=== PATIENT | male | born 1945 | race Caucasian/White ===

== ENCOUNTER → 2018-04-18 12:25 | Outpatient (CLI) | payer MEDICARE, OTHER, SELFPAY ==
[2018-04-12 10:12] VITALS: BMI 29.5
[2018-04-18 13:36] LABS: Absolute Lymphocyte Count 1.51 X10^3/ul (0.83-4.51); Absolute Neutrophil Count 4.3 X10^3/uL (2.0-7.7); Basophil# 0.02 X10^3/uL; Basophil% 0.3 % (0-1); Eosinophil# 0.18 X10^3/uL; Eosinophils% 2.7 % (0-5); Hematocrit 45.8 % (40-54); Hemoglobin 14.9 g/dl (13.0-16.5); Lymphocyte # 1.51 X10^3/ul (4.0); Lymphocyte % 22.8 % (19-41); Mean Corp Hgb Conc 32.5 g/gl (32-36); Mean Corpuscular Volume 95.4 fL (80-94); Mean Platelet Vol. 10.1 fl (6.2-12.0); Monocyte# 0.59 X10^3/uL; Monocyte% 8.9 % (0-10); Neutrophil # 4.32 X10^3/uL (2.7-7.7); Neutrophil % 65.1 % (47-70); Platelet Count 216 K/mm3 (150-450); RBC Distribution Width CV 12.8 % (11.6-14.6); RBC Distribution Width SD 43.2 fl (35.1-43.9); White Blood Count 6.6 K/mm3 (4.4-11.0)
[2018-04-18 13:38] LABS: POSITIVE COUNT NO; POSITIVE DIFFERENTIAL NO; POSITIVE MORPHOLOGY NO
[2018-04-18 14:10] LABS: Anion Gap 7 (5-15); BUN 28 mg/dL (7-18); BUN/Creat Ratio 17.2 RATIO (10-20); Calcium,Total 8.6 mg/dL (8.5-10.1); Chloride 111 mmol/L (98-107); Creatinine, Serum 1.63 mg/dL (0.70-1.30); EST Glomerular Filtration Rate 44 mL/min (>60); Est Glom Filt Rate - Afr Amer 54 mL/min (>60); Glucose 93 mg/dL (74-106); Magnesium 2.4 mg/dL (1.6-2.6); Sodium Level 146 mmol/L (136-145); Thyroid Stim Hormone (TSH) 1.41 uIU/mL (0.358-3.74)
== END ==
PROVIDERS: Family Provider Family Medicine; PCP Family Medicine; Referring Provider Internal Medicine Cardiovascular Disease; Visit Provider Internal Medicine Cardiovascular Disease
DX: I47.1 Supraventricular tachycardia (principal); I10 Essential (primary) hypertension
CPT/HCPCS: 36415; 80048; 83735; 84443; 85025

== ENCOUNTER → 2018-05-02 05:39 | Outpatient (CLI) | payer MEDICARE, OTHER, SELFPAY ==
[2018-04-12 10:12] VITALS: BP 109/71; PULSE 83; RESP 18; TEMP 36.6; O2SAT 98; BMI 29.5
--- NOTE | 2018-04-12 10:59 | HP.PCM_ITS ---
Problem List (1) Screening for intestinal cancer Status: Acute History of Present Illness Date of Admission: 04/12/18 The patient is a 73 year old M screening colonoscopy. His last colonoscopy was 10 years ago. He denies bright red blood per rectum or melena. No abdominal pain. No change in bowel habits. No unexplained weight loss. He has otherwise enjoys good health. There is no family history of colon polyps or colon cancer. Past Medical History Allergies No Known Allergies Allergy (Verified 04/09/18 15:02) Home Medications: Ambulatory Orders Medication Instructions Recorded Indapamide 1.25 mg PO DAILY 04/09/18 Lisinopril [Zestril] 20 mg PO DAILY 04/09/18 Lovastatin [Mevacor] 40 mg PO DAILY 04/09/18 Smoking Status: Never smoker Tobacco Use: Non-smoker Review of Systems Constitutional: Denies: Anorexia HEENT: Denies: Difficulty Swallowing Cardiovascular: Denies: Chest Pain Respiratory: Denies: Shortness of Breath Gastrointestinal: Denies: Abdominal Pain, Hematochezia, Melena Psychiatric: Denies: Anxiety Endocrine: Denies: Change in Body Habitus VTE Information - Inpt Only VTE Present on Admission: No Patient Problems: Active and Suspected Problems Screening for intestinal cancer (Acute) - Physical Exam General: Alert, Oriented x3, Cooperative, No apparent distress HEENT: Atraumatic Oral: Moist Mucosa Neck: Supple Lungs: Clear to auscultation, Normal air movement Cardiovascular: Regular rate, Regular Rhythm Abdomen: Bowel Sounds Present, Soft, Non Tender Extremities: No Calf Tenderness Psych/Mental Status: Normal Affect Vital Signs Temp Pulse Resp BP Pulse Ox 98 F 83 18 109/71 98 04/12/18 10:12 04/12/18 10:12 04/12/18 10:12 04/12/18 10:12 04/12/18 10:12 Oxygen Delivery Method Room Air Weight: 211 lb 10.3 oz Body Mass Index (BMI) 29.5 Assessment/Plan All Active Problems Screening for intestinal cancer (Acute) I have recommended the patient is screening colonoscopy with possible biopsy or polypectomy as indicated. He is aware of the technique, benefits, risks and alternatives. He has had an opportunity to ask and have questions answered. We will proceed as noted. He presents via our open access program today. Kartik Sams M.D., F.A.C.S. Addendum As the patient was connected to the monitor it became apparent that he had a run of a supraventricular tachycardia. He was asymptomatic. Blood pressure was stable. On further discussion with the patient it is apparent that his referral was based upon a [place] guard that was positive. With that in mind I would prefer to combine a upper and lower endoscopy The patient and are requesting consultation by special agent group insurance Dr. Abdiel Ferrari. We will establish an outpatient appointment for him. We will obtain an EKG today. We will then need to see the patient preoperatively in the office to arrange for a combined upper and lower endoscopy under monitored anesthesia care. Kartik Sams M.D., F.A.C.S. I have spoken with Dr. Abdiel Ferrari who is willing to see the patient next week for us and provide appropriate evaluation
[2018-04-12 11:20] VITALS: BP 124/83; O2SAT 96
--- NOTE | 2018-04-12 15:56 | EKG12_ITS ---
Test Reason : PREOP Blood Pressure : / mmHG Vent. Rate : 066 BPM Atrial Rate : 066 BPM P-R Int : 154 ms QRS Dur : 140 ms QT Int : 424 ms P-R-T Axes : 042 -12 -08 degrees QTc Int : 444 ms Normal sinus rhythm with sinus arrhythmia Right bundle branch block Abnormal ECG Confirmed by TERE KHAN, ONEAL ([id number]), manager editorial DAMIAN MUSE ([id number]) on 04/17/2018 3:55:09 PM Referred By: Kartik Sams Confirmed By:ONEAL CARRANZA MD
--- OUTSIDE RECORDS SUMMARY | 2018-06-07 11:21 | XMS RPT_ITS ---
:1945 Author Organization OHIP Care Team Providers Name Role Phone Ayush Ochoa Admitting Unavailable Ayush Ochoa Attending Unavailable Osman Mishra Primary Care Unavailable Abdiel Ferrari Attending Unavailable Jeovanny Ferraril Referring Unavailable OSMAN MISHRA Primary Care Unavailable Nurse, Surgery Attending Unavailable OSMAN MISHRA Referring Unavailable Abdiel Ferrari Attending Unavailable OSMAN MISHRA Referring Unavailable Abdiel Ferrari Attending Unavailable Abdiel Ferrari Referring Unavailable OSMAN MISHRA Primary Care Unavailable Juan C Carranza Attending Unavailable Kartik Sams Referring Unavailable PROBLEMS PROBLEMS DATE TYPE CONDITION / CODE ATTENDING STATUS SOURCE 04/18/2018 Unknown G45.9 - Transient [place], [place] Active [place] cerebral ischemic Community attack, unspecified / Hospital G45.9(ICD-10) Repository 04/18/2018 Unknown I47.1 - [place], [place] Active [facility] Supraventricular Community tachycardia / Hospital I47.1(ICD-10) Repository 04/18/2018 Unknown I10 - Essential Vonda, Abdiel Active [place] (primary) hypertension Community / I10(ICD-10) Hospital Repository 04/18/2018 Unknown E78.5 - Vonda, Abdiel Active [facility] Hyperlipidemia, Community unspecified / Hospital E78.5(ICD-10) Repository 04/23/2018 Unknown I45.10 - Unspecified [place], Active [facility] right bundle-branch [facility] block / I45.10(ICD-10) Hospital Repository 04/23/2018 Unknown R94.31 - Abnormal [place], Active [place] electrocardiogram [facility] [ECG] [EKG] / Hospital R94.31(ICD-10) Repository PROCEDURES PROCEDURES No Procedure Records FoundRESULTS RESULTS CBC W/DIFF, AUTOMATED Collected: 04/18/2018 Status: F Source: [facility] 12:30 PM [facility] HOSPITAL REPOSITORY TYPE CODE TESTS RESULT OUT OF RANGE REFERENCE UNITS LAB L100.1000 4.4-11.0 K/mm3 Normal WBC 6.6 LAB L100.1200 4.6-6.2 M/mm3 Normal RBC 4.80 LAB L100.1300 13.0-16.5 g/dl Normal HGB 14.9 LAB L100.1400 40-54 % Normal HCT 45.8 LAB L100.1500 80-94 fL High MCV 95.4 LAB L100.1600 27.0-32.0 pg Normal MCH 31.0 LAB L100.1700 32-36 g/gl Normal MCHC 32.5 LAB L100.1810 11.6-14.6 % Normal RDW CV 12.8 LAB L100.1820 35.1-43.9 fl Normal RDW SD 43.2 LAB L100.1900 150-450 K/mm3 Normal PLT 216 LAB L100.2000 6.2-12.0 fl Normal MPV 10.1 LAB L100.2100 47-70 % Normal NEUT% 65.1 LAB L100.2200 19-41 % Normal LY% 22.8 LAB L100.2300 0-10 % Normal MONO% 8.9 LAB L100.2400 0-5 % Normal EO% 2.7 LAB L100.2500 0-1 % Normal BASO% 0.3 LAB L100.2550 0.0-0.9 % Normal IM GRAN % 0.200 Result Comment: IG% - Immature Granulocytes (promyelocytes, myelocytes and metamyelocytes) > 1% indicates that a LEFT SHIFT is Present. LAB L100.2620 2.0-7.7 X10 3/uL Normal Absolute Neut 4.3 LAB L100.2720 0.83-4.51 X10 3/ul Normal Absolute Lymph 1.51 Performed By: #### L100.0100 #### [facility] [address] [place], [place], [id number] BASIC METABOLIC Collected: 04/18/2018 Status: F Source: [place] PROFILE (BMP) 12:30 PM [facility] [place] TYPE CODE TESTS RESULT OUT OF RANGE REFERENCE UNITS LAB L501.0100 74-106 mg/dL Normal GLU 93 Result Comment: Please note revised GLUCOSE reference range effective 2017. LAB L501.1000 7-18 mg/dL High BUN 28 LAB L501.1100 0.70-1.30 mg/dL High CREAT,SERUM 1.63 Result Comment: The validity of the calculated GFR AND GFRAA in patients over 70 years has not been determined. Clinical correlation is essential. LAB L501.1110 >60 mL/min Low EST GFR 44 Result Comment: Non- GFR Calc LAB L501.1115 >60 mL/min Low EST GFR - AA 54 Result Comment: GFR Calc LAB L501.1300 10-20 RATIO Normal BUN/CRE 17.2 LAB L501.2200 8.5-10.1 mg/dL CA Normal 8.6 LAB L501.5300 136-145 mmol/L High NA 146 LAB L501.5600 3.5-5.1 mmol/L K Normal 4.0 LAB L501.5900 98-107 mmol/L High CL 111 LAB L501.6100 21.0-32.0 mmol/L Normal CO2 28.0 LAB L501.6200 5-15 Normal GAP 7 Performed By: #### L500.2500, L501.5200, L501.9520 #### [facility] [address] [place], [place], [address] MAGNESIUM Collected: 04/18/2018 Status: F Source: [place] 12:30 PM [facility] [place] TYPE CODE TESTS RESULT OUT OF RANGE REFERENCE UNITS LAB L501.5200 1.6-2.6 mg/dL Normal MG 2.4 Performed By: #### L500.2500, L501.5200, L501.9520 #### [facility] [address] [place], [address] THYROID STIM HORMONE Collected: 04/18/2018 Status: F Source: [place] (TSH) 12:30 PM [facility] [place] TYPE CODE TESTS RESULT OUT OF RANGE REFERENCE UNITS LAB L501.9520 0.358-3.74 uIU/mL Normal TSH 1.41 Performed By: #### L500.2500, L501.5200, L501.9520 #### [facility] [address] [place], [address] CARDIOLOGY VISIT Observed: 04/18/2018 Status: F Source: [place] REPORT 11:51 AM [facility] [place] [facility] [address] [place] [address] OFFICE VISIT Date of Service: 04/18/18 MR#: [id number] Acct: [id number] Name: LEONEL BLISS Rep #: [id number] : 1945 Provider: Abdiel Ferrari MD Age/Sex: 73/M Location: [facility] Status: Signed HPI [facility] Chief Complaint: Initial visits. Details: LEONEL BLISS, is a 73 M who presents to the office today for an initial visit. He is a pleasant gentleman with no previous history other than hypertension who was scheduled for a screening colonoscopy. He had had no abdominal pain or change in bowel habits or palpitations. He has had no chest pain nourished paroxysmal nocturnal dyspnea. He had had mild pedal edema and was placed on indapamide about a year ago. Shortly before the colonoscopy he was noted to go into a narrow complex tachycardia with a rate of approximately 150 bpm which started abruptly with a premature atrial complex and ended abruptly. Sinus rhythm recurred. I was contacted by the surgeon to see whether he could be evaluated pre-operatively. He has had no other symptomatology and no palpitations. Previous echocardiogram which was performed in 2017 demonstrated an ejection fraction of 65%, mild concentric hypertrophy, stage I diastolic dysfunction. He also had an electrocardiogram which demonstrated normal sinus rhythm with a rate of 66 bpm and a right bundle branch block. His physical exam today is unremarkable. Intake Vital Signs04/18/18 Weight: 216 lb 04/18/18 Blood Pressure 118/68 04/18/18 Respiratory Rate 16 04/18/18 Pulse Rate 60 04/18/18 Pulse Ox 95 Intake Visit Reasons: Cebul referred, [place] Allergies No Known Allergies Allergy (Verified 04/18/18 11:00) Medications Lovastatin [Mevacor] 40 mg PO DAILY 04/09/18 [History Confirmed 04/18/18] lisinopril 10 mg tablet 10 mg PO DAILY #90 tab 04/18/18 [Rx Confirmed 04/18/18] metoprolol succinate ER 50 mg tablet,extended release 24 hr 50 mg PO DAILY #90 tab 04/18/18 [Rx Confirmed 04/18/18] [facility] Medical History Essential (primary) hypertension (Chronic) Hyperlipidemia (Chronic) Right bundle branch block (Chronic) TIA (transient ischemic attack) (Chronic) Paroxysmal supraventricular tachycardia (Acute) Surgical History H/O arthroscopy of right knee (Resolved) H/O inguinal hernia repair (Resolved) H/O umbilical hernia repair (Resolved) Family History Mother Hypertension Father Hypertension Sister Hypertension Brother Hypertension Myocardial infarction Social History Smoking Status: Never smoker alcohol intake: current alcohol intake frequency: other Alcohol type: beer ROS Const Const: Negative for fatigue, weakness, difficulty sleeping, frequent falls, excessive sweating or headache(s) Eyes Eyes: Negative for loss of peripheral vision, transient loss of vision, blurry vision, tunnel vision or double vision ENT ENT: Negative for headache(s), dizziness, Nosebleed/epistaxis or balance problems Cardio Chest Pain: No Palpitations: No Edema: None Muscle aches with walking: None Resp Respiratory: Negative for SOB with activity, SOB at rest, SOB orthopnea\SOB lying down, paroxysmal nocturnal dyspnea or Cough GI GI: Negative nausea, heartburn, black,tarry stools or vomiting : Negative for hematuria Musc Musc: Negative for balance problems, muscle aches/ myalgia, muscle weakness or joint pain Skin Skin: Negative non-healing lesions, unusual bruising or rash Neuro Neuro: Negative for weakness, frequent falls, headache(s), blurry vision, double vision, dizziness, lightheadedness, orthostatic symptoms, near syncope, syncope or lack of coordination Edgar Hematologic/Lymphatic: Negative for easy bruising or easy bleeding Endo Endo: Negative for fatigue, excessive sweating or increased thirst/drinking Psych Psych: Negative for anxiety or depression Allergy Allergy/Immunology: Negative for hives, Negative for rash Cardiology Exam Const Appearance: cooperative, healthy appearing, well developed, well groomed and no acute distress Nutritional Appearance: well nourished and average body habitus Orientation: alert, awake and oriented x3 Head Head: normal to inspection, normocephalic and atraumatic Ears: hearing grossly normal bilaterally and external ears normal Nose: external nose normal, nasal mucous membranes and turbinates normal, nares normal, septum normal, no nasal discharge Face and Sinus: face symmetric Mouth: oral mucosae normal, tongue normal, oropharynx normal and moist mucous membranes Teeth and gingiva: dentition normal Throat: posterior oropharynx normal, tonsils normal and uvula midline Eyes General: appearance normal, both eyes and all related structures Eyelids: eyelids normal Conjunctivae: conjunctivae normal Pupils: PERRL, normal by confrontation and accommodation normal EOM: EOM intact bilaterally Neck Neck: normal visual inspection, trachea midline and no JVD JVD: +5 Carotids: normal carotid upstroke and bounding pulses Chest Chest inspection: normal inspection of the chest, symmetric chest movement and normal respiratory effort Auscultation: Bilateral: Clear to Auscultation Cardio Palpation: normal PMI Rate: regular rate Rhythm: regular rhythm Heart sounds: S1 normal, S2 normal and normal, physiologic split S2; negative rub, gallop or murmur GI GI: normal to inspection, soft, no hepatosplenomegaly and bowel sounds present Neuro General: alert, awake, oriented x3, no focal sensory deficit, gait normal and moves all extremities Skin Skin: no rashes or lesions noted Extremities Pulses: Normal: Right Femoral Pulse, Left Femoral Pulse, Right Dorsalis Pedis Pulse, Left Dorsalis Pedis Pulse, Right Posterior Tibial Pulse, Left Posterior Tibial Pulse, Right Radial Pulse, Left Radial Pulse Lower Extremity Edema: None: Bilateral Musculoskel Musculoskeletal: No joint tenderness Psych Psychological: normal affect Assessment AND Plan 1. Paroxysmal supraventricular tachycardia I47.1 Plan He does have a history of documented paroxysmal atrial tachycardia. My recommendation will be to repeat his echocardiogram, obtain blood work including magnesium and potassium as well as thyroid profile. I would recommend that we place him on a beta-maykel with Toprol-XL 50 mg a day and also for him to obtain a myocardial perfusion stress test. If the above are all normal then I would recommend that he proceed with a colonoscopy with him taking the medications up to and including the day of the procedure. Orders Orders: 2. Right bundle branch block I45.10 Plan He has a right bundle branch block which appears to be of unknown duration. He does not appear to have had any symptoms with the above. We will continue to monitor him. Orders Orders: 3. Essential (primary) hypertension I10 Plan He does have a history of hypertension which is well controlled I would recommend reducing the lisinopril to 10 mg a day, starting the beta-maykel, and discontinuing the indapamide. We will continue to follow his blood pressures closely. Orders Orders: 4. Hyperlipidemia E78.5 Plan He does have a history of hyperlipidemia and is currently on lovastatin. This will be followed up by his primary physician. Thank you for allowing me to participate in the care of your patient. 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) Coding Level of Care Code Off vis,new,level 4 Diagnoses Paroxysmal supraventricular tachycardia I47.1 Right bundle branch block I45.10 Essential (primary) hypertension I10 Hyperlipidemia E78.5 Coding Level of Care Code Off vis,new,level 4 Diagnoses Paroxysmal supraventricular tachycardia I47.1 Right bundle branch block I45.10 Essential (primary) hypertension I10 Hyperlipidemia E78.5 04/18/18 1151 <Electronically signed by Abdiel Ferrari MD> Date Abdiel Ferrari MD Cosigner Signature: Date (if applicable) CC: Osman Mishra MD; Kartik Sams MD 12 LEAD ELECTROCARDIOGRAM Observed: 04/17/2018 Status: F Source: [place] 3:55 PM [facility] [place] [facility] Cardiovascular Services [address] [place] [address] 12 Lead EKG 04/12/18 1131 MR#: [id number] Acct: [id number] Name: LEONEL BLISS Rep #: [id number] : 1945 73 From: Juan C Carranza MD Attending Dr: Kartik Sams MD Status: PRE SDC Ordering Dr: Kartik Sams MD Date: 04/12/18 Location: EN Sex: M C Admitted: Test Reason : PREOP Blood Pressure : / mmHG Vent. Rate : 066 BPM Atrial Rate : 066 BPM P-R Int : 154 ms QRS Dur : 140 ms QT Int : 424 ms P-R-T Axes : 042 -12 -08 degrees QTc Int : 444 ms Normal sinus rhythm with sinus arrhythmia Right bundle branch block Abnormal ECG Confirmed by TERE KHAN, JUAN C ([id number]), industrial editor DAMIAN MUSE ([id number]) on 04/17/2018 3:55:09 PM Referred By: Kartik Sams Confirmed By:JUAN C CARRANZA MD 04/17/18 1555 Date Juan C Carranza MD CC: Osman Mishra MD; Kartik Sams MD Signed HISTORY AND PHYSICAL Observed: 04/12/2018 Status: F Source: [place] EXAM 2:32 PM [facility] [place] [facility] Medical Records Department [address] [place] [address] History and Physical 04/12/18 1056 MR#: [id number] Acct: [id number] Name: LEONEL BLISS Rep #: [id number] : 1945 73 From: Kartik Sams MD PCP: Osman Mishra MD Status: PRE SDC Y Location: EN Problem List (1) Screening for intestinal cancer Status: Acute History of Present Illness Date of Admission: 04/12/18 The patient is a 73 year old M screening colonoscopy. His last colonoscopy was 10 years ago. He denies bright red blood per rectum or melena. No abdominal pain. No change in bowel habits. No unexplained weight loss. He has otherwise enjoys good health. There is no family history of colon polyps or colon cancer. Past Medical History Allergies No Known Allergies Allergy (Verified 04/09/18 15:02) Home Medications: Ambulatory Orders Medication Instructions Recorded Indapamide 1.25 mg PO DAILY 04/09/18 Lisinopril [Zestril] 20 mg PO DAILY 04/09/18 Lovastatin [Mevacor] 40 mg PO DAILY 04/09/18 Smoking Status: Never smoker Tobacco Use: Non-smoker Review of Systems Constitutional: Denies: Anorexia HEENT: Denies: Difficulty Swallowing Cardiovascular: Denies: Chest Pain Respiratory: Denies: Shortness of Breath Gastrointestinal: Denies: Abdominal Pain, Hematochezia, Melena Psychiatric: Denies: Anxiety Endocrine: Denies: Change in Body Habitus VTE Information - Inpt Only VTE Present on Admission: No Patient Problems: Active and Suspected Problems Screening for intestinal cancer (Acute) - Physical Exam General: Alert, Oriented x3, Cooperative, No apparent distress HEENT: Atraumatic Oral: Moist Mucosa Neck: Supple Lungs: Clear to auscultation, Normal air movement Cardiovascular: Regular rate, Regular Rhythm Abdomen: Bowel Sounds Present, Soft, Non Tender Extremities: No Calf Tenderness Psych/Mental Status: Normal Affect Vital Signs Temp Pulse Resp BP Pulse Ox 98 F 83 18 109/71 98 04/12/18 10:12 04/12/18 10:12 04/12/18 10:12 04/12/18 10:12 04/12/18 10:12 Oxygen Delivery Method Room Air Weight: 211 lb 10.3 oz Body Mass Index (BMI) 29.5 Assessment/Plan All Active Problems Screening for intestinal cancer (Acute) I have recommended the patient is screening colonoscopy with possible biopsy or polypectomy as indicated. He is aware of the technique, benefits, risks and alternatives. He has had an opportunity to ask and have questions answered. We will proceed as noted. He presents via our open access program today. Kartik Sams M.D., F.A.C.S. Addendum As the patient was connected to the monitor it became apparent that he had a run of a supraventricular tachycardia. He was asymptomatic. Blood pressure was stable. On further discussion with the patient it is apparent that his referral was based upon a [employer] guard that was positive. With that in mind I would prefer to combine a upper and lower endoscopy The patient and are requesting consultation by shirt trimmer Dr. Abdiel Ferrari. We will establish an outpatient appointment for him. We will obtain an EKG today. We will then need to see the patient preoperatively in the office to arrange for a combined upper and lower endoscopy under monitored anesthesia care. Kartik Sams M.D., F.Marlo.S. I have spoken with Dr. Abdiel Ferrari who is willing to see the patient next week for us and provide appropriate evaluation 04/12/18 1432 <Electronically signed by Kartik Sams MD> Date Kartik Sams MD Cosigner Signature: Date (if applicable) CC: Osman Mishra MD; Kartik Sams MD Signed PSA T+% FR Collected: 07/17/2017 Status: F Source: [facility] 8:12 AM [facility] REPOSITORY TYPE CODE TESTS RESULT OUT OF RANGE REFERENCE UNITS LAB 20684154(LO ng/mL INC) Normal PSA Tot. 3.3 Result Comment: No patient age and/or gender provided Age Male Female All Ages 0.0 - 4.0 Not Estab. Mkie ECLIA methodology. According to the [place] [employer], Serum PSA should decrease and remain at undetectable levels after radical prostatectomy. The AUA defines biochemical recurrence as an initial PSA value 0.2 ng/mL or greater followed by a subsequent confirmatory PSA value 0.2 ng/mL or greater. Values obtained with different assay methods or kits cannot be used interchangeably. Results cannot be interpreted as absolute evidence of the presence or absence of malignant disease. LAB [id number](LOINC) N/A ng/mL Normal PSA Free 0.96 Result Comment: Mike ECLIA methodology. LAB 11594357(LOINC) % Normal % Free 29.1 PSA Result Comment: The table below lists the probability of prostate cancer for men with non-suspicious RITA results and total PSA between 4 and 10 ng/mL, by patient age (Sarath et al, FELIPE 1998, 279:1542). % Free PSA 50-64 yr 65-75 yr 0.00-10.00% 56% 55% 10.01-15.00% 24% 35% 15.01-20.00% 17% 23% 20.01-25.00% 10% 20% >25.00% 5% 9% Please note: Sarath et al did not make specific recommendations regarding the use of percent free PSA for any other population of men. Performed At: [facility] [address] [id number] Olivier Kay PhD Ph:[phone] Performed By: #### [id number] #### [place] [address] ALLERGIES ALLERGIES DATE TYPE / CODE NAME / CODE REACTION SEVERITY SOURCE 04/18/[address] [facility] Allergy/4160 Allergies/F00 [facility] [address](SNOMED 2974431(RXNOR Repository CT) M) ENCOUNTERS ENCOUNTERS ADMIT/DISCHARGE ACCOUNT ADMITTING ENCOUNTER LOCATION SOURCE NUMBER CLASS 05/02/2018 [id number] Ambulatory [facility] ing:[facility] Repository 04/18/2018 [id number] Ambulatory [facility] ing:LAB Repository 04/18/2018/04/18/20 [id number] Ambulatory BMSBuilding:B [facility] 18 [facility] Repository 04/12/2018 [id number] Ambulatory BMSBuilding:W [facility] Repository 03/26/2018/03/26/20 [id number] Ambulatory BMSBuilding:B [place] 18 MS.Critical access hospital Repository 07/17/2017/07/18/19 [id number] Ayush Ochoa Ambulatory [facility] Repository PAYERS PAYERS ENCOUNTER GUARANTOR PAYER SUBSCRIBER SOURCE 05/02/2018 LEONEL Y Primary LEONEL Y [place] [id number] W Insurance:MEDICARE BEECHYDOB: [id number] Number: Repository [place] [id number]: [id number] Date:2018-04-18 () 05/02/2018 Secondary LEONEL Y [place] Insurance:NEW ERA BEECHYDOB: [facility] [id number] Hospital Number: Repository [id number] Date:[id number] [address] [address]PT: 05/02/2018 Tertiary NOT GIVENUNK [place] Insurance:SELF PAY [facility] Number: Effective Repository Date:2018-04-18 04/18/2018 LEONEL Y Primary LEONEL Y [place] [id number] Insurance:MEDICARE BEECHYDOB: [facility] [id number] Number: Repository [place] [id number]: [id number] Date:2018-04-18 () 04/18/2018 Secondary LEONEL Y [place] Insurance:NEW ERA BEECHYDOB: [facility] [id number] Hospital Number: Repository [id number] Date:[id number] [address]SN: 04/18/2018 Tertiary NOT GIVENUNK [place] Insurance:SELF PAY [facility] Number: Effective Repository Date:2018-04-18 04/18/2018 LEONEL Y Primary LEONEL Y [place] [id number] Insurance:MEDICARE BEECHYDOB: [facility] [id number], Number: Repository [place] [id number]: [id number] Date:2018-04-12 () 04/18/2018 Secondary LEONEL Y [place] Insurance:NEW ERA BEECHYDOB: [facility] [id number] Hospital Number: Repository [id number] Date:[id number] [address] [address]XK: 04/18/2018 Tertiary NOT GIVENUNK [place] Insurance:SELF PAY [facility] Number: Effective Repository Date:2018-04-12 04/12/2018 LEONEL Y Primary LEONEL Y [place] [id number] Insurance:MEDICARE BEECHYDOB: [facility] [id number], Number: Repository [place] [id number]: [id number] Date:2018-03-26 () 04/12/2018 Secondary LEONEL Y [place] Insurance:NEW ERA BEECHYDOB: [facility] [id number] Hospital Number: Repository [id number] Date:[id number] [address] [address]QJ: 04/12/2018 Tertiary NOT GIVENUNK [place] Insurance:SELF PAY [facility] Number: Effective Repository Date:2018-04-12 03/26/2018 LEONEL Y Primary LEONEL Y [place] [id number] Insurance:MEDICARE BEECHYDOB: [facility] [id number] [facility], Number: [place] [id number]: [id number] Date:2018-03-26 () 03/26/2018 Secondary LEONEL Y [place] Insurance:[place] BEECHYDOB: [facility] [id number] Hospital INSPolicy Number: Repository [id number] Date:[id number], x xWP: 03/26/2018 Tertiary NOT GIVENUNK [place] Insurance:SELF PAY [facility] Number: Effective Repository Date:2018-03-26 07/17/2017 LEONEL Y Primary LEONEL Y Taoism BEECHYDOB: Insurance:MedicarePol BEECHYDOB: [facility] W icy Number: Effective [id number] [place] [address] Date:2017-07-17 - W LYLE Repository [facility], [id number] [place], [place] Name:CD:[id number] [address]Otp: [id number] [address]Bxh: [id number]: [phone] (HP) [phone] (HP) (WP) 07/17/2017 Secondary [facility] [id number] System Number: Effective [facility] Date:2017-07-17 - [facility], [id number] MD Name:CD:[id number] [facility] [address]Wkv: [id number], [place] [address]NE: [phone] (HP) [phone] (WP)
--- OUTSIDE RECORDS SUMMARY | 2018-08-03 07:24 | XMS RPT_ITS ---
:1945 Author Organization OHIP Care Team Providers Name Role Phone Abdiel Ferrari Attending Unavailable Vonda Wellesley Referring Unavailable OSMAN MISHRA Primary Care Unavailable Nurse, Surgery Attending Unavailable OSMAN MISHRA Referring Unavailable Kartik Sams Attending Unavailable Kartik Sams Referring Unavailable OSMAN MISHRA Primary Care Unavailable Abdiel Ferrari Attending Unavailable Abdiel Ferrari Referring Unavailable OSMAN MISHRA Primary Care Unavailable Abdiel Ferrari Consulting Unavailable Kartik Sams Attending Unavailable OSMAN MISHRA Referring Unavailable Abdiel Ferrari Attending Unavailable OSMAN MISHRA Referring Unavailable Abdiel Ferrari Attending Unavailable Vonda Wellesley Referring Unavailable OSMAN MISHRA Primary Care Unavailable Juan C Carranza Attending Unavailable Kartik Sams Referring Unavailable Osman Mishra Admitting Unavailable Osman Mishra Attending Unavailable Osman Mishra Primary Care Unavailable Ayush Ochoa Admitting Unavailable Ayush Ochoa Attending Unavailable Osman Mishra Primary Care Unavailable PROBLEMS PROBLEMS DATE TYPE CONDITION / CODE ATTENDING STATUS SOURCE 05/24/2018 Unknown R19.5 - Other fecal Kartik Sams Active [facility] abnormalities / Community R19.5(ICD-10) Hospital Repository 05/02/2018 Unknown I10 - Essential Vonda, Abdiel Active [employer] (primary) hypertension Community / I10(ICD-10) Hospital Repository 05/02/2018 Unknown I45.10 - Unspecified Vonda, Abdiel Active [facility] right bundle-branch Community block / I45.10(ICD-10) Hospital Repository 05/02/2018 Unknown I47.1 - Vonda, Abdiel Active [facility] Supraventricular Community tachycardia / Hospital I47.1(ICD-10) Repository 05/02/2018 Unknown G45.9 - Transient Vonda, Wellesley Active [employer] cerebral ischemic Community attack, unspecified / Hospital G45.9(ICD-10) Repository 04/18/2018 Unknown E78.5 - Vonda, Abdiel Active [facility] Hyperlipidemia, Community unspecified / Hospital E78.5(ICD-10) Repository 04/23/2018 Unknown R94.31 - Abnormal [place], Active [facility] electrocardiogram [facility] [ECG] [EKG] / Hospital R94.31(ICD-10) Repository PROCEDURES PROCEDURES No Procedure Records FoundRESULTS RESULTS SURGERY VISIT REPORT Observed: 05/24/2018 Status: F Source: [place] 9:03 AM [facility] REPOSITORY [facility] [address] [place] [address] [address] [place] [address] OFFICE VISIT Date of Service: 05/24/18 MR#: [id number] Acct: [id number] Name: LEONEL BLISS Rep #: [id number] : 1945 Provider: Kartik Sams MD Age/Sex: 73/M Location: [facility] Status: Signed Intake Vital Signs05/24/18 Blood Pressure 170/85 H 05/24/18 Body Mass Index (BMI) 29.5 05/24/18 Height 5 ft 10 in 05/24/18 Weight: 220 lb 2 oz 05/24/18 Body Mass Index (BMI) 31.6 05/24/18 Blood Pressure 175/83 H Intake Visit Reasons: C-Scope positive cologuard cleared by cardio Chief Complaint: discuss colonoscopy Video Engineer Required: No Is patient in pain?: No Allergies No Known Allergies Allergy (Verified 05/24/18 08:45) Medications Lovastatin [Mevacor] 40 mg PO DAILY 04/09/18 [History Confirmed 05/24/18] metoprolol succinate ER 50 mg tablet,extended release 24 hr 50 mg PO DAILY #30 tab 04/18/18 [Rx Confirmed 05/24/18] lisinopril 10 mg tablet 20 mg PO DAILY tab 05/24/18 [History] [facility] Medical History Positive colorectal cancer screening using Cologuard test (Acute) Essential (primary) hypertension (Chronic) Hyperlipidemia (Chronic) Right bundle branch block (Chronic) TIA (transient ischemic attack) (Chronic) Paroxysmal supraventricular tachycardia (Acute) Surgical History History of colonoscopy (Acute 2007) H/O arthroscopy of right knee (Resolved) H/O inguinal hernia repair (Resolved) H/O umbilical hernia repair (Resolved) Family History Mother Hypertension Father Hypertension Sister Hypertension Brother Hypertension Myocardial infarction Social History Smoking Status: Never smoker alcohol intake: current alcohol intake frequency: other Alcohol type: beer HPI HPI HPI: LEONEL BLISS, is a 73 M who presents to the office today for surgical consultation prior to planned evaluation for positive [place] guard. He was previously scheduled via open access for the same problem. He was found to be markedly tachycardic. The procedure was canceled. He has separately been evaluated by Dr. Abdiel Ferrari. He has had a stress test. No acute ischemia. He has been initiated on metoprolol. Current blood pressure is slightly elevated. Heart rate is much improved. He previously had had clear liquids for 2 days and prefers not doing that. ROS General General: No weight change, appetite, fatigue, colon cancer or breast cancer HEENT HEENT: No difficulty swallowing, eye injury, eye surgery, swollen glands or hoarseness Endo Endocrine: No thyroid disease, diabetes mellitus, thyroid cancer, Hair loss, heat intolerance or cold intolerance Cardio Cardiovascular: Yes high blood pressure; no murmur, pacemaker, heart disease, atrial fibrillation, heart attack, heart stent, palpitations, shortness of breat with exertion or chest pain Additional Details: BBB Resp Respiratory: No shortness of breath, No sleep apnea, No cough, No COPD, No asthma, No emphysema, No wheezing Gastro Gastrointestinal: No abdominal pain, No nausea or vomiting, No diarrhea, No constipation, No blood in stool, No acid reflux, No hemorrhoids, No ulcers, No gallbladder problem, No black,tarry stools Edgar Hematologic: No blood thinners, No blood disorders, No bleeding, No anemia, No blood clots Neuro Neurologic: Yes other (tia) Exam Const General: cooperative, healthy appearing Nutritional Appearance: average body habitus Orientation: alert HENMT Head: normal to inspection Resp Effort AND Inspection: normal respiratory effort Auscultation: clear to auscultation bilaterally Cardio Rate: regular rate Rhythm: regular rhythm Heart Sounds: no murmurs GI Palpation: soft, no hepatosplenomegaly Neuro Cranial Nerves: CN's II-XI intact bilaterally Extrem General: no clubbing, cyanosis or edema Psych Affect: normal affect Assessment AND Plan Problems 1. Positive colorectal cancer screening using Cologuard test R19.5 Plan I recommend a combined esophagogastroduodenoscopy with possible biopsy and colonoscopy with possible biopsy or polypectomy is indicated. He is aware of the technique, benefit, risks and alternatives. Because of his previous tachycardia we will utilize monitored anesthesia care. We will try to simplify his bowel prep to make it more acceptable for him. I appreciate the ongoing opportunity of assisting with surgical care. Trapper Animal is Dr. Abdiel Pelletier And primary care physician is Dr. Osman Sams M.D., F.A.C.S. Coding Level of Care Code Off vis,est,level 2 Diagnoses Positive colorectal cancer screening using Cologuard test R19.5 05/24/18 0903 <Electronically signed by Kartik Sams MD> Date Kartik Murray Signature: Date (if applicable) CC: XR KNEE COMPLETE LEFT Observed: 05/11/2018 Status: F Source: [facility] 2:04 PM [facility] REPOSITORY Exam Date/Time: 05/11/2018 14:19 EST Reason for Exam: chronic left knee pain Report STUDY: XR Knee Complete Left; 05/11/2018 2:19 pm INDICATION: chronic left knee pain. COMPARISON: None. ACCESSION NUMBER(S): [id number] ORDERING CLINICIAN: Osman Mishra TECHNIQUE: 4 views of the left knee including AP, lateral and bilateral oblique projections were obtained. FINDINGS: There is no evidence of acute fracture or dislocation identified. The joint spaces are well preserved throughout without significant degenerative changes. No suprapatellar joint effusion is present. IMPRESSION: 1. No acute fracture or dislocation. FINAL REPORT Dictated: 05/11/2018 2:29 pm Lv Rivera MD Signed (Electronic Signature): 05/11/2018 2:29 pm Signed by: Lv Rivera MD Technologist: SURY ECHOCARDIOGRAM COMPLETE Observed: 05/02/2018 Status: F Source: [place] 1:07 PM [facility] Cardiovascular Services [address] [place] [address] Echo Complete 05/02/18 0848 MR#: [id number] Acct: [id number] Name: LEONEL BLISS Rep #: [id number] : 1945 73 From: Abdiel Ferrari MD Attending Dr: Abdiel Ferrari MD Status: REG CLI Ordering Dr: Abdiel Ferrari MD Date: 05/02/18 Location: [facility] Sex: M C Admitted: Reason For Study: Arrhythmia Procedure This was a 2D Doppler, Color Flow transthoracic echocardiogram. Exam performed in department. Left Ventricle Normal LV size. Left ventricular systolic function is normal. No evidence for diastolic dysfunction. The estimated ejection fraction is 60 %. No regional wall motion abnormalities noted. Right Ventricle Normal RV size. Normal systolic function. Atria Normal left atrium. Normal right atrium. Mitral Valve Normal mitral valve. Tricuspid Valve Normal tricuspid valve. Mild (1+) tricuspid valve insufficiency. Pulmonary artery systolic pressure is 35 mmHg. Aortic Valve Normal aortic valve. Trisinus/trileaflet aortic valve. Pulmonic Valve Normal pulmonic valve. Great Vessels Mildly dilated aortic root. The pulmonary artery is normal size. Normal inferior vena cava. Pericardium/Pleural No pericardial effusion. MMode/2D Measurements AND Calculations LVIDd: 5.4 cm IVSd: 1.0 cm Ao root diam: 3.8 cm LVIDs: 3.9 cm LVPWd: 0.93 cm RVDd: 4.2 cm FS: 28.3 % LAV(MOD-bp): 44.6 ml LVAd ap4: 29.5 cm2 SV(MOD-sp4): 50.7 ml LAV(MOD-bp) Indexed: 20.5 ml/m2 EDV(MOD-sp4): 90.8 ml LAV(MOD-sp2): 53.1 ml EDV(sp4-el): 90.3 ml LAV(MOD-sp4): 34.4 ml LVAs ap4: 18.1 cm2 ESV(MOD-sp4): 40.1 ml ESV(sp4-el): 39.1 ml EF(MOD-sp4): 55.9 % EF(sp4-el): 56.7 % SV(sp4-el): 51.2 ml LA A4 area: 16.4 cm2 LA dimension(2D): 4.4 cm RA A4 area: 13.4 cm2 Doppler Measurements AND Calculations MV E max patrice: 88.4 cm/sec Lat Peak E' Patrice: 7.1 cm/sec Med Peak E' Patrice: 6.3 cm/sec MV A max patrice: 59.3 cm/sec E/E' lat: 12.5 E/E' med: 14.1 MV E/A: 1.5 Ao V2 max: 107.3 cm/sec LV V1 max: 105.0 cm/sec PA V2 max: 81.7 cm/sec Ao max P.6 mmHg LV V1 max P.4 mmHg Ao V2 mean: 78.9 cm/sec Ao mean P.7 mmHg Ao V2 VTI: 28.1 cm PI end-d patrice: 119.6 cm/sec TR max patrice: 278.8 cm/sec TR max P.1 mmHg Interpretation Summary No evidence for diastolic dysfunction. Left ventricular systolic function is normal. Normal LV size. The estimated ejection fraction is 60 %. Mild (1+) tricuspid valve insufficiency. Ordering Physician: Abdiel Ferrari Referring Physician: Osman Mishra Performed By: Donya Birmingham, LEIGH, RVT 05/02/18 1306 Date Abdiel Ferrari MD CC: Abdiel Ferrari MD; Osman Mishra MD Date Dictated: 05/02/1848 Date Transcribed: 05/02/18 1306 Conveyor System Dispatcher: Signed STRESS REPORT Observed: 05/02/2018 Status: F Source: [place] 12:49 PM [facility] Cardiovascular Services [address] [place] [address] MR#: [id number] Acct: [id number] Name: LEONEL BLISS Rep #: [id number] : 1945 73 From: Abdiel Ferrari MD Primary Care: Osman Mishra MD Status: REG CLI Ordering Dr: Sex: M C Stress Test Report Exercise myocardial perfusion stress test. 73-year-old man with a history of hypertension with previous supraventricular tachycardia Stress protocol: Resting EKG demonstrates sinus bradycardia with a rate of 51 bpm right bundle branch block resting blood pressure 144/80 mmHg. The patient exercised according to the Doug protocol for total duration of 6 minutes and 44 seconds completing 44 seconds into stage III of the Doug protocol the maximum heart rate attained was 113 bpm which was 76% maximum predicted heart rate patient was noted to be in a beta-maykel. Maximum workload was 7 metabolic equivalents. At rest there were no ST or T wave changes noted to suggest ischemia peak exercise upsloping ST changes were noted with normally the criteria for ischemia. The patient persistent right bundle branch block. The resting blood pressure was 144/86 with a peak blood pressure 164/72. Myocardial perfusion protocol. 14.8 mCi of technetium 99m sestamibi was injected at rest. The patient exercised according to regular Doug protocol for 6 minutes and 44 seconds. At peak exercise 44.2 mCi of sestamibi was injected stress images were obtained stress and rest images were reconstructed and compared in the short axis vertical and horizontal long axis. Gated images were also obtained proximal Perfusion SPECT analysis. Review of the stress images demonstrate normal uptake of tracer noted in all areas of myocardium. The resting images similarly demonstrate normal uptake of tracer noted in all areas myocardium. No areas of reversibility are noted suggest ischemia no previous infarct is noted. Gated SPECT analysis: The gated ejection fraction was noted to be 63%. Conclusion: Normal exercise myocardial perfusion stress test at a moderate workload. No arrhythmias noted. Preserved ejection fraction. 05/02/18 1249 <Electronically signed by Abdiel Ferrari MD> Date Abdiel Ferrari MD CC: Abdiel Ferrari MD; Osman Mishra MD Date Dictated: 05/02/181240 Date Transcribed: 05/02/181240 Conveyor System Dispatcher: [place] Signed CBC W/DIFF, AUTOMATED Collected: 04/18/2018 Status: F Source: [facility] 12:30 PM [facility] TYPE CODE TESTS RESULT [...] Lymph 1.51 Performed By: #### L100.0100 #### [facility] [address] [place], [address] BASIC METABOLIC Collected: 04/18/2018 Status: F Source: [place] PROFILE ([facility]) 12:30 PM [facility] TYPE CODE TESTS RESULT [...] Performed By: #### L500.2500, L501.5200, L501.9520 #### [facility] [address] [place], [address] MAGNESIUM Collected: 04/18/2018 Status: F Source: [place] 12:30 PM [facility] TYPE CODE TESTS RESULT OUT OF RANGE REFERENCE UNITS LAB L501.5200 1.6-2.6 mg/dL Normal MG 2.4 Performed By: #### L500.2500, L501.5200, L501.9520 #### [facility] [address] [place], [address] THYROID STIM HORMONE Collected: 04/18/2018 Status: F Source: [place] ([facility]) 12:30 PM [facility] TYPE CODE TESTS RESULT OUT OF RANGE REFERENCE UNITS LAB L501.9520 0.358-3.74 uIU/mL Normal TSH 1.41 Performed By: #### L500.2500, L501.5200, L501.9520 #### [facility] [address] [place], [address] CARDIOLOGY VISIT Observed: 04/18/2018 Status: F Source: [facility] REPORT 11:51 AM [facility] [address] [place] [address] OFFICE VISIT Date of Service: 04/18/18 MR#: [id number] Acct: [id number] Name: LEONEL BLISS Rep #: [id number] : 1945 Provider: Abdiel Ferrari MD Age/Sex: 73/M Location: [facility] [place] Status: Signed HPI HPI Chief Complaint: Initial visits. 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) Coding Level of Care Code Off vis,new,level [...] LEAD ELECTROCARDIOGRAM Observed: 04/17/2018 Status: F Source: [place] 3:55 PM [facility] Cardiovascular Services [address] [place] [address] 12 Lead EKG 04/12/18 1131 MR#: [id number] Acct: [id number] Name: LEONEL BLISS Rep #: [id number] : 1945 73 From: Juan C Carranza MD Attending Dr: Kartik Sams MD Status: PRE SDC Ordering Dr: Kartik Sams MD Date: 04/12/18 Location: Sex: M C Admitted: Test Reason : [...] ECG Confirmed by TERE KHAN, JUAN C ([id number]), technical editor DAMIAN MUSE ([id number]) on 04/17/2018 3:55:09 PM Referred By: Kartik Sams Confirmed By:JUAN C CARRANZA MD 04/17/18 1555 Date Juan C Carranza MD CC: Osman Mishra MD; Kartik Sams MD Signed HISTORY AND PHYSICAL Observed: 04/12/2018 Status: F Source: [place] EXAM 2:32 PM [facility] Medical Records Department [address] [place] [address] History and Physical 04/12/18 1056 MR#: [id number] Acct: [id number] Name: LEONEL BLISS Rep #: [id number] : 1945 73 From: Kartik Sams MD PCP: Osman Mishra MD Status: PRE [facility] Location: EN Problem List (1) Screening [...] open access program today. Kartik Sams M.D., NgoziCErikaS. Addendum As the patient was connected to the monitor it became apparent that he had a run of a supraventricular tachycardia. He was asymptomatic. Blood pressure was stable. On further discussion with the patient it is apparent that his referral was based upon a [place] guard that was positive. With that in mind I would prefer to combine a upper and lower endoscopy The patient and are requesting consultation by buildings and grounds supervisor Dr. Abdiel Ferrari. We will establish an outpatient appointment for him. We will obtain an EKG today. We will then need to see the patient preoperatively in the office to arrange for a combined upper and lower endoscopy under monitored anesthesia care. Kartik Sams M.D., Cecily. I have spoken with Dr. Abdiel Ferrari who is willing to see the patient next week for us and provide appropriate evaluation 04/12/18 1432 <Electronically signed by Kartik Sams MD> Date Kartik Sams MD Cosigner Signature: Date (if applicable) CC: Osman Mishra MD; Kartik Sams MD Signed PSA T+% FR Collected: 07/17/2017 Status: F Source: [place] 8:12 AM [facility] REPOSITORY TYPE CODE TESTS RESULT OUT OF RANGE REFERENCE UNITS LAB 65320574(LO ng/mL INC) Normal PSA Tot. 3.3 Result Comment: No patient age and/or gender provided Age Male Female All Ages 0.0 - 4.0 Not Estab. Mike ECLIA methodology. According to the [place] [employer], Serum PSA should decrease and [...] presence or absence of malignant disease. LAB 15096246(LOINC) N/A ng/mL Normal PSA Free 0.96 Result Comment: Mike ECLIA methodology. LAB 47168146(LOINC) % Normal % Free 29.1 PSA Result Comment: The table below lists the probability of prostate cancer for men with non-suspicious RITA results and total PSA between 4 and 10 ng/mL, by patient age (Saraht et al, FELIPE 1998, 279:1542). % Free PSA 50-64 yr 65-75 yr 0.00-10.00% 56% 55% 10.01-15.00% 24% 35% 15.01-20.00% 17% 23% 20.01-25.00% 10% 20% >25.00% 5% 9% Please note: Sarath et al did not make specific recommendations regarding the use of percent free PSA for any other population of men. Performed At: [facility] [id number] Olivier Kay PhD Ph:[phone] Performed By: #### [id number] #### [facility] [address] [address] ALLERGIES ALLERGIES DATE TYPE / CODE NAME / CODE REACTION SEVERITY SOURCE 05/24/2018 Drug No Known Unknown [facility] Community Allergy/4160 Allergies/F00 [facility] 40496(SNOMED 1959276(RXNOR Repository CT) M) ENCOUNTERS ENCOUNTERS ADMIT/DISCHARGE ACCOUNT NUMBER ADMITTING ENCOUNTER LOCATION SOURCE CLASS 05/24/2018/05/24/19 [id number] Ambulatory BMSBuilding: [facility] BMS[facility] Repository 05/11/2018/05/11/20 [id number] [place], Ambulatory [facility] ding:[facility] Repository 05/11/2018 [id number] Ambulatory [address] [place] [address] Repository 05/02/2018 [id number] Ambulatory BMSBuilding: [facility] BMS.CF.[facility] Repository 05/02/2018 [id number] Ambulatory [facility] ding:[facility] Repository 05/02/2018 [id number] Ambulatory [facility] ding:EN Repository 04/18/2018 [id number] Ambulatory [facility] ding:LAB Repository 04/18/2018/04/18/20 [id number] Ambulatory BMSBuilding: [facility] 18 BMS.[facility] Repository 04/12/2018 [id number] Ambulatory BMSBuilding: [facility] Repository 03/26/2018/03/26/20 [id number] Ambulatory BMSBuilding: [employer] 18 BMS.[facility] Repository 07/17/2017/07/18/19 [id number] Ayush Ochoa [address] ding:[facility] Repository PAYERS PAYERS ENCOUNTER GUARANTOR PAYER SUBSCRIBER SOURCE 05/24/2018 LEONEL Y Primary LEONEL Y [facility] [id number] Insurance:MEDICARE BEECHYDOB: [facility] [id number], Number: Repository [place] [address]Tee: [id number] Date:2018-04-19 () 05/24/2018 Secondary LEONEL Y [facility] Insurance:NEW ERA BEECHYDOB: [facility] [id number] Hospital Number: Repository [id number] Date:2956-77-83AR [address] [address]KU: 05/24/2018 Tertiary NOT GIVENUNK [facility] Insurance:SELF PAY [facility] Number: Effective Repository Date:2018-04-19 05/11/2018 LEONEL Y Primary LEONEL Y Tenriism BEECHYDOB: Insurance:MedicarePol BEECHYDOB: [facility] icy Number: Effective [id number] [facility] Date:2018-05-11 [facility], [id number] [place], [place] Name:CD:[id number] [facility] [address]Inh: [id number], [place] [address]Zyz: [id number]: [phone]) (HP) [phone] (HP) (WP) 05/11/2018 Secondary LEONEL Y Tenriism Insurance:COMMERCIAL BEECHYDOB: [facility] [id number] System Number: Effective [facility] Repository Date:2018-05-11 - [facility], [id number] [place] Name:CD:[id number] [place] [id number]: [address], [place] [address]KK: [phone]) (HP) [phone] (WP) 05/11/2018 LEONEL [facility] BEECHYDOB: Insurance:MedicarePol BEECHYDOB: Hospitals icy Number: [id number] Repository [place] [id number] [facility], Date:Plan Name:[place], [place] [id number]: A [place] [id number]: (HP) (HP) 05/11/2018 [facility] Insurance:MedicarePol BEECHYDOB: Hospitals icy Number: [id number] Repository [id number] [facility] Date:Plan Name:[facility] [place] [id number]: (HP) 05/11/2018 Tertiary [facility] Insurance:CommercialP BEECHYDOB: [facility] Number: [id number] Repository [id number] [place] Date:Plan Name:[place], [place] [id number]: () 05/02/2018 LEONEL Y Primary LEONEL Y [employer] [id number] W Insurance:MEDICARE BEECHYDOB: [facility] A [facility] [id number] Ranch [facility], Number: Repository [place] [address]Jto: [id number] Date:2018-04-18 () 05/02/2018 Secondary LEONEL Y [facility] Insurance:NEW ERA BEECHYDOB: [facility] [id number] Hospital Number: Repository [id number] Date:2799-00-11[address] [place] [address]TD: 05/02/2018 Tertiary NOT GIVENUNK [employer] Insurance:SELF PAY [facility] Number: Effective Repository Date:2018-05-02 05/02/2018 LEONEL Y Primary LEONEL Y [employer] [id number] W Insurance:MEDICARE BEECHYDOB: [facility] A [facility] [id number] Ranch Medical Center, Number: Repository [place] [address]Oub: [id number] Date:2018-04-18 () 05/02/2018 Secondary LEONEL Y [facility] Insurance:NEW ERA BEECHYDOB: [facility] [id number] Hospital Number: Repository [id number] Date:0439-55-83NF [address] [place] [address]BV: 05/02/2018 Tertiary NOT GIVENUNK [employer] Insurance:SELF PAY [facility] Number: Effective Repository Date:2018-04-18 05/02/2018 LEONEL Y Primary LEONEL Y [employer] [id number] W Insurance:MEDICARE BEECHYDOB: [facility] [id number] Ranch Medical Center, Number: Repository [place] [id number]: [id number] Date:2018-03-26 () 05/02/2018 Secondary LEONEL Y Bubba Insurance:NEW ERA BEECHYDOB: [facility] [id number] Hospital Number: Repository [id number] Date:6436-75-16WV [address] [place] [address] 76099OZ: 05/02/2018 Tertiary NOT GIVENUNK [place] Insurance:SELF PAY [facility] Number: Effective Repository Date:2018-04-12 04/18/2018 LEONEL Y Primary LEONEL Y Bubba [id number] W Insurance:MEDICARE BEECHYDOB: [facility] [id number], Number: Repository [place] [id number]: [id number] Date:2018-04-18 () 04/18/2018 Secondary LEONEL Y [employer] Insurance:NEW ERA BEECHYDOB: [facility] [id number] Hospital Number: Repository [id number] Date:[id number] [address] [address]OC: 04/18/2018 Tertiary NOT GIVENUNK [employer] Insurance:SELF PAY [facility] Number: Effective Repository Date:2018-04-18 04/18/2018 LEONEL Y Primary LEONEL Y Bubba [id number] W Insurance:MEDICARE BEECHYDOB: [facility] [id number] Ranch Medical Center, Number: Repository [place] [id number]: [id number] Date:2018-04-12 () 04/18/2018 Secondary LEONEL Y [employer] Insurance:NEW ERA BEECHYDOB: [facility] [id number] Hospital Number: Repository [id number] Date:3374-84-65QZ [address] [address]NV: 04/18/2018 Tertiary NOT GIVENUNK [employer] Insurance:SELF PAY [facility] Number: Effective Repository Date:2018-04-12 04/12/2018 LEONEL Y Primary LEONEL Y Bubba [id number] W Insurance:MEDICARE BEECHYDOB: [facility] [id number] Ranch Medical Center, Number: [place]ository [place] [address]Tio: [id number] Date:2018-03-26 () 04/12/2018 Secondary LEONEL Y [employer] Insurance:NEW ERA BEECHYDOB: [facility] [id number] Hospital Number: Repository [id number] Date:2045-86-20QH [address] [place] [address] 79235ZU: 04/12/2018 Tertiary NOT GIVENUNK [place]ubba Insurance:SELF PAY [facility] Number: Effective Repository Date:2018-04-12 03/26/2018 LEONEL Y Primary LEONEL Y [employer] [id number] W Insurance:MEDICARE BEECHYDOB: [facility] [id number] Ranch Medical Center, Number: Repository [place] [address]Zii: [id number] Date:2018-03-26 () 03/26/2018 Secondary LEONEL Y [employer] Insurance:[place] BEECHYDOB: [facility] [id number] County General Hospitalolic Number: Repository [id number] Date:8960-94-75py, x xWP: 03/26/2018 Tertiary NOT GIVENUNK [employer] Insurance:SELF PAY [facility] Number: Effective Repository Date:2018-03-26 07/17/2017 LEONEL Y Primary LEONEL Y [employer] BEECHYDOB: Insurance:MedicarePol BEECHYDOB: [facility] W icy Number: Effective [id number] [facility] Date:2017-07-17 [facility] 4938-91-56[place], [place] Name:CD:[id number] [facility] [address]Tsw: [id number] [place] [id number]: [address]WP: [phone]) (HP) [phone] (HP) (WP) 07/17/2017 [facility] Insurance:[facility]: [facility] [id number] System Number: Effective [address] Repository Date:2017-07-17 [id number] [place] Name:CD:[id number] [address] [address]Bkc: [facility], [place] [address]WP: [phone] (HP) [phone] (WP)
== END ==
PROVIDERS: Family Provider Family Medicine; PCP Family Medicine; Referring Provider Surgery; Visit Provider Surgery
PROC: 0DJD8ZZ Inspection of Lower Intestinal Tract, Via Natural or Artificial Opening Endoscopic (ICD-10-PCS; CPT 45378; principal; 2018-04-12 10:55)
DX: Z53.09 Procedure and treatment not carried out because of other contraindication (principal); Z12.11 Encounter for screening for malignant neoplasm of colon; I47.1 Supraventricular tachycardia
CPT/HCPCS: 93005; 99152; 99153; J7120

== ENCOUNTER → 2018-05-02 06:00 | Outpatient (CLI) | payer MEDICARE, OTHER, SELFPAY ==
[2018-04-12 10:12] VITALS: BMI 29.5
--- NOTE | 2018-05-02 06:24 | ECHOD_ITS ---
Reason For Study: Arrhythmia Procedure This was a 2D Doppler, Color Flow transthoracic echocardiogram. Exam performed in department. Left Ventricle Normal LV size. Left ventricular systolic function is normal. No evidence for diastolic dysfunction. The estimated ejection fraction is 60 %. No regional wall motion abnormalities noted. Right Ventricle Normal RV size. Normal systolic function. Atria Normal left atrium. Normal right atrium. Mitral Valve Normal mitral valve. Tricuspid Valve Normal tricuspid valve. Mild (1+) tricuspid valve insufficiency. Pulmonary artery systolic pressure is 35 mmHg. Aortic Valve Normal aortic valve. Trisinus/trileaflet aortic valve. Pulmonic Valve Normal pulmonic valve. Great Vessels Mildly dilated aortic root. The pulmonary artery is normal size. Normal inferior vena cava. Pericardium/Pleural No pericardial effusion. MMode/2D Measurements & Calculations LVIDd: 5.4 cm IVSd: 1.0 cm Ao root diam: 3.8 cm LVIDs: 3.9 cm LVPWd: 0.93 cm RVDd: 4.2 cm FS: 28.3 % LAV(MOD-bp): 44.6 ml LVAd ap4: 29.5 cm2 SV(MOD-sp4): 50.7 ml LAV(MOD-bp) Indexed: 20.5 ml/m2 EDV(MOD-sp4): 90.8 ml LAV(MOD-sp2): 53.1 ml EDV(sp4-el): 90.3 ml LAV(MOD-sp4): 34.4 ml LVAs ap4: 18.1 cm2 ESV(MOD-sp4): 40.1 ml ESV(sp4-el): 39.1 ml EF(MOD-sp4): 55.9 % EF(sp4-el): 56.7 % SV(sp4-el): 51.2 ml LA A4 area: 16.4 cm2 LA dimension(2D): 4.4 cm RA A4 area: 13.4 cm2 Doppler Measurements & Calculations MV E max patrice: 88.4 cm/sec Lat Peak E' Patrice: 7.1 cm/sec Med Peak E' Patrice: 6.3 cm/sec MV A max patrice: 59.3 cm/sec E/E' lat: 12.5 E/E' med: 14.1 MV E/A: 1.5 Ao V2 max: 107.3 cm/sec LV V1 max: 105.0 cm/sec PA V2 max: 81.7 cm/sec Ao max P.6 mmHg LV V1 max P.4 mmHg Ao V2 mean: 78.9 cm/sec Ao mean P.7 mmHg Ao V2 VTI: 28.1 cm PI end-d patrice: 119.6 cm/sec TR max patrice: 278.8 cm/sec TR max P.1 mmHg Interpretation Summary No evidence for diastolic dysfunction. Left ventricular systolic function is normal. Normal LV size. The estimated ejection fraction is 60 %. Mild (1+) tricuspid valve insufficiency. Ordering Physician: Abdiel Ferrari Referring Physician: Warren Pimentel Performed By: Donya Birmingham, LEIGH, RVT
--- NOTE | 2018-05-02 12:41 | STRESSREP ---
Stress Test Report Exercise myocardial perfusion stress test. 73-year-old man with a history of hypertension with previous supraventricular tachycardia Stress protocol: Resting EKG demonstrates sinus bradycardia with a rate of 51 bpm right bundle branch block resting blood pressure 144/80 mmHg. The patient exercised according to the Doug protocol for total duration of 6 minutes and 44 seconds completing 44 seconds into stage III of the Doug protocol the maximum heart rate attained was 113 bpm which was 76% maximum predicted heart rate patient was noted to be in a beta-maykel. Maximum workload was 7 metabolic equivalents. At rest there were no ST or T wave changes noted to suggest ischemia peak exercise upsloping ST changes were noted with normally the criteria for ischemia. The patient persistent right bundle branch block. The resting blood pressure was 144/86 with a peak blood pressure 164/72. Myocardial perfusion protocol. 14.8 mCi of technetium 99m sestamibi was injected at rest. The patient exercised according to regular Doug protocol for 6 minutes and 44 seconds. At peak exercise 44.2 mCi of sestamibi was injected stress images were obtained stress and rest images were reconstructed and compared in the short axis vertical and horizontal long axis. Gated images were also obtained proximal Perfusion SPECT analysis. Review of the stress images demonstrate normal uptake of tracer noted in all areas of myocardium. The resting images similarly demonstrate normal uptake of tracer noted in all areas myocardium. No areas of reversibility are noted suggest ischemia no previous infarct is noted. Gated SPECT analysis: The gated ejection fraction was noted to be 63%. Conclusion: Normal exercise myocardial perfusion stress test at a moderate workload. No arrhythmias noted. Preserved ejection fraction.
--- OUTSIDE RECORDS SUMMARY | 2018-08-03 07:33 | XMS RPT_ITS ---
:1945 Author Organization OHIP Care Team Providers Name Role Phone Abdiel Ferrari Attending Unavailable Vonda, Sherrill Referring Unavailable OSMAN MISHRA Primary Care Unavailable Vonda, Abdiel Attending Unavailable Vonda, Sherrill Referring Unavailable OSMAN MISHRA Primary Care Unavailable Vonda, Abdiel Consulting Unavailable Kartik Sams Attending Unavailable OSMAN MISHRA Referring Unavailable Nurse, Surgery Attending Unavailable OSMAN MISHRA Referring Unavailable Abdiel Ferrari Attending Unavailable OSMAN MISHRA Referring Unavailable Vonda, Sherrill Attending Unavailable Vonda, Sherrill Referring Unavailable OSMAN MISHRA Primary Care Unavailable Juan C Carranza Attending Unavailable Kartik Sams Referring Unavailable Kartik Sams Attending Unavailable Kartik Sams Referring Unavailable OSMAN MISHRA Primary Care Unavailable Ayush Ochoa Admitting Unavailable Ayush Ochoa Attending Unavailable Osman Mishra Primary Care Unavailable Osman Mishra Admitting Unavailable Osman Mishra Attending Unavailable Osman Mishra Primary Care Unavailable PROBLEMS PROBLEMS DATE TYPE CONDITION / CODE ATTENDING STATUS SOURCE 05/24/2018 Unknown R19.5 - Other fecal Kartik Sams Active [facility] abnormalities / Community R19.5(ICD-10) Hospital Repository 05/02/2018 Unknown I10 - Essential Vonda, Abdiel Active [place] (primary) hypertension Community / I10(ICD-10) Hospital Repository 05/02/2018 Unknown I45.10 - Unspecified Vonda, Abdiel Active [facility] right bundle-branch Community block / I45.10(ICD-10) Hospital Repository 05/02/2018 Unknown I47.1 - Vonda, Abdiel Active [facility] Supraventricular Community tachycardia / Hospital I47.1(ICD-10) Repository 05/02/2018 Unknown G45.9 - Transient Vonda, Sherrill Active [place] cerebral ischemic Community attack, unspecified / Hospital G45.9(ICD-10) Repository 04/18/2018 Unknown E78.5 - Vonda, Abdiel Active [facility] Hyperlipidemia, Community unspecified / Hospital E78.5(ICD-10) Repository 04/23/2018 Unknown R94.31 - Abnormal [place], Active [facility] electrocardiogram [facility] [ECG] [EKG] / Hospital R94.31(ICD-10) Repository PROCEDURES PROCEDURES No Procedure Records FoundRESULTS RESULTS SURGERY VISIT REPORT Observed: 05/24/2018 Status: F Source: [place] 9:03 AM [facility] REPOSITORY [facility] [address] [place] [address] OFFICE VISIT Date of Service: 05/24/18 MR#: [id number] Acct: [id number] Name: LEONEL BLISS Rep #: [id number] : 1945 Provider: Kartik Sams MD Age/Sex: 73/M Location: [facility] Status: Signed Intake Vital Signs05/24/18 Blood Pressure 170/85 H 05/24/18 Body Mass Index (BMI) 29.5 05/24/18 Height 5 ft 10 in 05/24/18 Weight: 220 lb 2 oz 05/24/18 Body Mass Index (BMI) 31.6 05/24/18 Blood Pressure 175/83 H Intake Visit Reasons: C-Scope positive cologuard cleared by cardio Chief Complaint: discuss colonoscopy Director Ship Required: No Is patient in pain?: No Allergies No Known Allergies Allergy (Verified 05/24/18 08:45) Medications Lovastatin [Mevacor] 40 mg PO DAILY 04/09/18 [History Confirmed 05/24/18] metoprolol succinate ER 50 mg tablet,extended release 24 hr 50 mg PO DAILY #30 tab 04/18/18 [Rx Confirmed 05/24/18] lisinopril 10 mg tablet 20 mg PO DAILY tab 05/24/18 [History] [facility] Medical History Positive colorectal cancer screening [...] consultation prior to planned evaluation for positive [place] guard. He was previously scheduled via open [...] ongoing opportunity of assisting with surgical care. Nurse Case Manager is Dr. Abdiel Pelletier And primary care physician is Dr. Osman Sams M.D., F.A.C.S. Coding Level of Care Code Off vis,est,level 2 Diagnoses Positive colorectal cancer screening using Cologuard test R19.5 05/24/18 0903 <Electronically signed by Kartik Sams MD> Date Kartik Murray Signature: Date (if applicable) CC: XR KNEE COMPLETE LEFT Observed: 05/11/2018 Status: F Source: [facility] 2:04 PM [facility] REPOSITORY Exam Date/Time: 05/11/2018 14:19 EST Reason for Exam: chronic left knee pain Report STUDY: XR Knee Complete Left; 05/11/2018 2:19 pm INDICATION: chronic left knee pain. COMPARISON: None. ACCESSION NUMBER(S): [id number] ORDERING CLINICIAN: Osman Mishra TECHNIQUE: 4 views [...] ECHOCARDIOGRAM COMPLETE Observed: 05/02/2018 Status: F Source: [place] 1:07 PM [facility] REPOSITORY [facility] Cardiovascular Services [address] [place] [address] Echo Complete 05/02/18 0848 MR#: [id number] Acct: [id number] Name: LEONEL BLISS Rep #: [id number] : 1945 73 From: Abdiel Ferrari MD Attending Dr: Abdiel Ferrari MD Status: REG CLI Ordering Dr: Abdiel Ferrari MD Date: 05/02/18 Location: [facility] Sex: M C Admitted: Reason For Study: [...] Date Dictated: 05/02/1848 Date Transcribed: 05/02/18 1306 Exerciser Horse: Signed STRESS REPORT Observed: 05/02/2018 Status: F Source: [place] 12:49 PM [facility] REPOSITORY [facility] Cardiovascular Services [address] [place] [address] MR#: [id number] Acct: [id number] Name: LEONEL BLISS Rep #: [id number] : 1945 73 From: Abdiel Ferrari MD [...] MD Date Dictated: 05/02/181240 Date Transcribed: 05/02/181240 Exerciser Horse: CO Signed CBC W/DIFF, AUTOMATED Collected: 04/18/2018 Status: F Source: [place] 12:30 PM [facility] REPOSITORY TYPE CODE TESTS RESULT OUT OF [...] Lymph 1.51 Performed By: #### L100.0100 #### [facility] [address] [place], [address] BASIC METABOLIC Collected: 04/18/2018 Status: F Source: [place] PROFILE ([facility]) 12:30 PM [facility] REPOSITORY TYPE CODE TESTS RESULT OUT OF [...] Performed By: #### L500.2500, L501.5200, L501.9520 #### [facility] [address] [place], [address] MAGNESIUM Collected: 04/18/2018 Status: F Source: [place] 12:30 PM [facility] REPOSITORY TYPE CODE TESTS RESULT OUT OF RANGE REFERENCE UNITS LAB L501.5200 1.6-2.6 mg/dL Normal MG 2.4 Performed By: #### L500.2500, L501.5200, L501.9520 #### [facility] [address] [place], [address] THYROID STIM HORMONE Collected: 04/18/2018 Status: F Source: [place] ([facility]) 12:30 PM [facility] REPOSITORY TYPE CODE TESTS RESULT OUT OF RANGE REFERENCE UNITS LAB L501.9520 0.358-3.74 uIU/mL Normal TSH 1.41 Performed By: #### L500.2500, L501.5200, L501.9520 #### [facility] [address] [place], [address] CARDIOLOGY VISIT Observed: 04/18/2018 Status: F Source: [place] REPORT 11:51 AM [facility] REPOSITORY [facility] 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) Coding Level of Care Code Off vis,new,level [...] Date (if applicable) CC: Osman Mishra MD; Kartki Sams MD 12 LEAD ELECTROCARDIOGRAM Observed: 04/17/2018 Status: F Source: [place] 3:55 PM [facility] REPOSITORY [facility] Cardiovascular Services [address] [place] [address] 12 Lead EKG 04/12/18 1131 MR#: [id number] Acct: [id number] Name: LEONEL BLISS Rep #: [id number] : 1945 73 From: Juan C Carranza [...] ECG Confirmed by TERE KHAN, JUAN C ([id number]), acquisition editor DAMIAN MUSE ([id number]) on 04/17/2018 3:55:09 PM Referred By: Kartik Sams Confirmed By:JUAN C CARRANZA MD 04/17/18 1555 Date Juan C Carranza MD CC: Osman Mishra MD; Kartik Sams MD Signed HISTORY AND PHYSICAL Observed: 04/12/2018 Status: F Source: [place] EXAM 2:32 PM [facility] REPOSITORY [facility] Medical Records Department [address] [place] [address] History and Physical 04/12/18 1056 MR#: [id number] Acct: [id number] Name: LEONEL BLISS Rep #: [id number] : 1945 73 From: Kartik Sams MD PCP: Osman Mishra MD Status: [facility] Location: EN Problem List (1) Screening [...] that his referral was based upon a [place] guard that was positive. With that in mind I would prefer to combine a upper and lower endoscopy The patient and are requesting consultation by software application tester Dr. Abdiel Ferrari. We will establish an [...] 07/17/2017 Status: F Source: [place] 8:12 AM [facility] REPOSITORY TYPE CODE TESTS RESULT OUT OF RANGE REFERENCE UNITS LAB 39385106(LO ng/mL INC) Normal PSA Tot. 3.3 Result Comment: No patient age and/or gender provided Age Male Female All Ages 0.0 - 4.0 Not Estab. Mike ECLIA methodology. According to the [employer], Serum PSA should decrease and [...] presence or absence of malignant disease. LAB 06966372(LOINC) N/A ng/mL Normal PSA Free 0.96 Result Comment: Mike ECLIA methodology. LAB 29395512(LOINC) % Normal % Free 29.1 PSA Result [...] any other population of men. Performed At: [facility] [id number] Olivier Kay PhD Ph:[phone] Performed By: #### [id number] #### [facility] [address] [address] ALLERGIES ALLERGIES DATE TYPE / CODE NAME / CODE REACTION SEVERITY SOURCE 05/24/2018 Drug No Known Unknown [facility] Community Allergy/4160 Allergies/F00 [facility] 37222(SNOMED 2847629(RXNOR Repository CT) M) ENCOUNTERS ENCOUNTERS ADMIT/DISCHARGE ACCOUNT NUMBER ADMITTING ENCOUNTER LOCATION SOURCE CLASS 05/24/2018/05/24/19 [id number] Ambulatory BMSBuilding: [facility] 19 BMS[facility] Repository 05/11/2018/05/11/20 [id number] [place], Ambulatory [facility] 18 [facility] ding:[facility] Repository 05/11/2018 [id number] Ambulatory [address] [place] [address] Repository 05/02/2018 [id number] Ambulatory BMSBuilding: [place] BMS.CF.[facility] Repository 05/02/2018 [id number] Ambulatory [facility] ding:[facility] Repository 05/02/2018 [id number] Ambulatory [facility] ding:EN Repository 04/18/2018 [id number] Ambulatory [facility] ding:LAB Repository 04/18/2018/04/18/20 [id number] Ambulatory BMSBuilding: [place] 18 BMS.[facility] Repository 04/12/2018 [id number] Ambulatory BMSBuilding: [facility] Repository 03/26/2018/03/26/20 [id number] Ambulatory BMSBuilding: [place] 18 BMS.[facility] Repository 07/17/2017/07/18/19 [id number] Ayush Ochoa [address] ding:[facility] Repository PAYERS PAYERS ENCOUNTER GUARANTOR PAYER SUBSCRIBER SOURCE 05/24/2018 LEONEL Y Primary LEONEL Y [place] [id number] W Insurance:MEDICARE BEECHYDOB: [facility] hospitaly [id number], Number: Repository [place] [address]Nof: [id number] Date:2018-04-19 () 05/24/2018 Secondary LEONEL Y [place] Insurance:NEW ERA BEECHYDOB: [facility] [id number] Hospital Number: Repository [id number] Date:0015-55-88MD [address] [address]CM: 05/24/2018 Tertiary NOT GIVENUNK [place] Insurance:SELF PAY [facility] Number: Effective Repository Date:2018-04-19 05/11/2018 LEONEL Y Primary LEONEL Y Shinto BEECHYDOB: Insurance:MedicarePol BEECHYDOB: [facility] icy Number: Effective [id number] [facility] Date:2018-05-11 [facility], 6981-33-55Lstb [place], [place] Name:CD:[id number] [facility] [address]Cem: [id number], [place] [address]Elt: [id number]: [phone]) (HP) [phone] (HP) (WP) 05/11/2018 Secondary LEONEL Y Shinto Insurance:COMMERCIAL BEECHYDOB: [facility] [id number] System Number: Effective [facility] Repository Date:2018-05-11 - [facility], 7146-09-70Wmfz [place] Name:CD:[id number] [place] [id number]: [address], [place] [address]UU: [phone]) (HP) [phone] (WP) 05/11/2018 LEONEL [facility] BEECHYDOB: Insurance:MedicarePol BEECHYDOB: Hospitals icy Number: [id number] Repository [place] [id number] [facility], Date:Plan Name:[place], [place] [id number]: A [place] [id number]: (HP) (HP) 05/11/2018 [facility] Insurance:MedicarePol BEECHYDOB: Hospitals icy Number: [id number] Repository [id number] [facility] Date:Plan Name:[facility] [place] [id number]: (HP) 05/11/2018 Tertiary [facility] Insurance:CommercialP BEECHYDOB: [facility] Number: [id number] Repository [id number] [address] [place] Date:Plan Name:[place], [place] [id number]: () 05/02/2018 LEONEL Y Primary LEONEL Y [place] [id number] W Insurance:MEDICARE BEECHYDOB: [facility] A [facility] [id number] Health [facility], Number: Repository in [address]Yje: [id number] Date:2018-04-18 () 05/02/2018 Secondary LEONEL Y [place] Insurance:NEW ERA BEECHYDOB: [facility] [id number] Hospital Number: Repository [id number] Date:9024-13-59TL [address] [place] [address]QD: 05/02/2018 Tertiary NOT GIVENUNK [place] Insurance:SELF PAY [facility] Number: Effective Repository Date:2018-05-02 05/02/2018 LEONEL Y Primary LEONEL Y [place] [id number] W Insurance:MEDICARE BEECHYDOB: [facility] A [facility] [id number] Health [facility], Number: Repository in [address]Bhn: [id number] Date:2018-04-18 () 05/02/2018 Secondary LEONEL Y [place] Insurance:NEW ERA BEECHYDOB: [facility] [id number] Hospital Number: Repository [id number] Date:7716-40-59QN [address] [place] [address]VU: 05/02/2018 Tertiary NOT GIVENUNK [place] Insurance:SELF PAY [facility] Number: Effective Repository Date:2018-04-18 05/02/2018 LEONEL Y Primary LEONEL Y [place] [id number] W Insurance:MEDICARE BEECHYDOB: [facility] [id number] Health [facility], Number: Repository in [address]Khl: [id number] Date:2018-03-26 () 05/02/2018 Secondary LEONEL Y [place] Insurance:NEW ERA BEECHYDOB: [facility] [id number] Hospital Number: Repository [id number] Date:8258-81-49BE [address] [place] [address]VY: 05/02/2018 Tertiary NOT GIVENUNK [place] Insurance:SELF PAY [facility] Number: Effective Repository Date:2018-04-12 04/18/2018 LEONEL Y Primary LEONEL Y [place] [id number] W Insurance:MEDICARE BEECHYDOB: [facility] [id number] Health [facility], Number: Repository [place] [id number]: [id number] Date:2018-04-18 () 04/18/2018 Secondary LEONEL Y [place] Insurance:NEW ERA BEECHYDOB: [facility] [id number] Hospital Number: Repository [id number] Date:1253-15-00OV [address] [address]XZ: 04/18/2018 Tertiary NOT GIVENUNK [place] Insurance:SELF PAY [facility] Number: Effective Repository Date:2018-04-18 04/18/2018 LEONEL Y Primary LEONEL Y [place] [id number] W Insurance:MEDICARE BEECHYDOB: [facility] [id number] Health [facility], Number: Repository [place] [id number]: [id number] Date:2018-04-12 () 04/18/2018 Secondary LEONEL Y [place] Insurance:NEW ERA BEECHYDOB: [facility] [id number] Hospital Number: Repository [id number] Date:0773-34-08GF [address] [address]NO: 04/18/2018 Tertiary NOT GIVENUNK [place] Insurance:SELF PAY [facility] Number: Effective Repository Date:2018-04-12 04/12/2018 LEONEL Y Primary LEONEL Y [place] [id number] W Insurance:MEDICARE BEECHYDOB: [facility] [id number] Health [facility], Number: Repository in [address]Ldf: [id number] Date:2018-03-26 () 04/12/2018 Secondary LEONEL Y [place] Insurance:NEW ERA BEECHYDOB: [facility] [id number] Hospital Number: Repository [id number] Date:2968-71-15OI [address] [place] [address]GE: 04/12/2018 Tertiary NOT GIVENUNK [place] Insurance:SELF PAY [facility] Number: Effective Repository Date:2018-04-12 03/26/2018 LEONEL Y Primary LEONEL Y [place] [id number] W Insurance:MEDICARE BEECHYDOB: [facility] [id number] Health South Sem[facility], Number: Repository in [address]Ntm: [id number] Date:2018-03-26 () 03/26/2018 Secondary LEONEL Y [place] Insurance:[place] BEECHYDOB: [facility] [id number] County General Hospitalolic Number: Repository [id number] Date:7852-04-55fr, x xWP: 03/26/2018 Tertiary NOT GIVENUNK [place] Insurance:SELF PAY [facility] Number: Effective Repository Date:2018-03-26 07/17/2017 LEONEL Y Primary LEONEL Y Shinto BEECHYDOB: Insurance:MedicarePol BEECHYDOB: [facility] W icy Number: Effective [id number] [facility] Date:2017-07-17 [facility] 8825-10-83[place]ff[place], [place] Name:CD:[id number] [facility] [address]Pzs: [id number] [place]IL[place] [id number]: [address]WP: (800) (HP) [phone] (HP) (WP) 07/17/2017 [facility] [address] [address]: [facility] [id number] System Number: Effective [address] [place] Repository Date:2017-07-17 [id number] [place] Name:CD:[id number] [address] [address]Mar: [facility], [place] [address]WP: [phone]) (HP) [phone] (WP)
== END ==
PROVIDERS: Family Provider Family Medicine; PCP Family Medicine; Referring Provider Internal Medicine Cardiovascular Disease; Visit Provider Internal Medicine Cardiovascular Disease
DX: I25.10 Atherosclerotic heart disease of native coronary artery without angina pectoris (principal); G45.9 Transient cerebral ischemic attack, unspecified; I47.1 Supraventricular tachycardia; I45.10 Unspecified right bundle-branch block; I10 Essential (primary) hypertension
CPT/HCPCS: 78452; 93005; 93017; 93306; 99152; 99153; A9500; J7120; A4216

== ENCOUNTER 2018-06-12 06:19 | Day surgery (SDC) | payer MEDICARE, OTHER, SELFPAY ==
[2018-05-24 08:45] VITALS: BMI 31.6
[2018-06-12 06:54] VITALS: BP 135/80; PULSE 50; RESP 16; TEMP 36.9; O2SAT 99; BMI 31.4
--- NOTE | 2018-06-12 07:30 | IMM_PTH ---
PATIENT: LEONEL BLISS LOC: EN U#:[id number] AGE/SX: 73/M ROOM: RE06/12/[address]: Dr. Kartik Sams MD : 1945 BED: DIS: 06/12/2018 SPEC #: [id number] RECD: 06/12/18 13:49 STATUS: BRIAN RESabrina #: [id number] YI: 06/12/18 07:[address]: Kartik Sams DEPT: IMMUNOHISTOCHEMISTRY RECD BY: Shawna Shen ENTERED: 06/12/18 13:49 SP TYPE: IMMUNO OTHR DR: Dr. Warren Pimentel MD Tissues: A - Stomach, NOS Procedures: H Pylori (initial) PHYSICIAN & INSTITUTION [place] [address] SPECIMEN INFORMATION: Tissue Source: A - Antral biopsy Clinical Info: Positive Cologuard test Specimen Number: [id number] CPT code: 65090 METHODOLOGY: Deparaffinized sections of prefer/formalin-fixed tissue or PAP/DQ stained slides are incubated with monoclonal/polyclonal antibodies/oligonucleotide probes. Localization is made via biotin free immunoperoxidase method. Appropriate controls are performed and reacted as expected. Results on target cell population are indicated in the following table: RESULTS: ANTIBODY / CLONE RESULT Block A H Pylori (polyclonal) negative These tests were developed and their performance characteristics determined by [facility]. They may not have been cleared or approved by the [place]. Food and Drug Administration. The FDA has determined that such clearance or approval is not necessary. INTERPRETATION: A. Antral biopsy: Negative for Helicobacter pylori organisms. AM:iza 06/14/18
--- NOTE | 2018-06-12 07:30 | COLBX_PTH ---
PATIENT: LEONEL BLISS LOC: EN U#:[id number] AGE/SX: 73/M ROOM: RE06/12/[address]: Dr. Kartik Sams MD : 1945 BED: DIS: 06/12/2018 SPEC #: [id number] RECD: 06/12/18 09:16 STATUS: BRIAN MADINA #: [id number] YI: 06/12/18 07:[address]: Kartik Sams DEPT: SURGICAL PATHOLOGY RECD BY: Wyatt Payan ENTERED: 06/12/18 12:23 SP TYPE: COLON BX OTHR DR: Dr. Warern Pimentel MD Tissues: A - Gastric mucous membrane B - Gastric mucous membrane C - Esophageal mucous membrane D - Esophageal mucous membrane E - Rectum, NOS Procedures: Special Stain Group II Surgery Specimen Level IV Alcian Blue/PAS (control) HEADER OPERATION: [place] [place] DIAGNOSIS: Positive Cologuard test TISSUE SUBMITTED: A - Antral biopsy for H. pylori and pathology, B - Fundic polyp biopsy, C - Distal esophageal biopsies, D - Mid esophageal biopsies, E - Rectal polyp MICROSCOPIC DIAGNOSIS A. Antral biopsy for H. pylori and pathology: Gastric antral and fundic type mucosa with focal chronic inflammation. B. Fundic polyp biopsy: Gastric fundic gland polyp. C. Distal esophageal biopsies: Gastroesophageal junctional mucosa showing basilar squamous hyperplasia with intraepithelial eosinophils and lymphocytes, moderate active chronic inflammation and focal intestinal metaplasia; No glandular dysplasia found. 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 Clinical correlation is recommended. D. Mid esophageal biopsies: Detached fragments of squamous epithelium showing a few intraepithelial eosinophils and lymphocytes. E. Rectal polyp: Tubulovillous adenoma. CE:iza 06/13/18 COMMENT A. The results of immunohistochemistry for Helicobacter pylori will be reported separately ([id number]). MICROSCOPIC DESCRIPTION Slides are reviewed. GROSS DESCRIPTION A - Received in fixative is one container labeled with the patient's name and designated antral biopsy. The specimen consists of one irregular fragment of light tai soft tissue that measures 0.6 x 0.3 x 0.2 cm. The specimen is totally submitted in one cassette. / RY: 06/12/18 B - Received in fixative is one container labeled with the patient's name and designated fundic polyp biopsy. The specimen consists of one irregular fragment of light tai soft tissue that measures 0.5 x 0.3 x 0.3 cm. The specimen is totally submitted in one cassette. / RY: 06/12/18 C - Received in fixative is one container labeled with the patient's name and designated distal esophageal biopsy. The specimen consists of multiple irregular fragments of light tai soft tissue that in aggregate measure 1 x 1 x 0.2 cm. The specimen is totally submitted in one cassette. / RY: 06/12/18 D - Received in fixative is one container labeled with the patient's name and designated mid esophageal biopsy. The specimen consists of multiple irregular fragments of light tai soft tissue that in aggregate measure 1.4 x 0.5 x 0.2 cm. The specimen is totally submitted in one cassette. / RY: 06/12/18 E - Received in fixative is one container labeled with the patient's name and designated rectal polyp. The specimen consists of Received in fixative is one container labeled with the patient's name and designated rectal polyp. The specimen consists of a pink-tai polyp measuring 1.2 x 0.6 x 0.5 cm. The specimen is trisected and totally submitted in one cassette. / AM: 06/12/18 TC:3 CPT: 11787 x5, 83396
[2018-06-12 08:10] VITALS: BP 107/61; BP 135/80; PULSE 70; RESP 16; TEMP 36.1; O2SAT 95
[2018-06-12 08:15] VITALS: BP 101/78; BP 135/80; PULSE 69; RESP 16; O2SAT 95
--- NOTE | 2018-06-12 08:16 | OP.ENDO_ITS ---
Patient Name: Gurdeep Vela Procedure Date: 06/12/2018 7:27 AM Date of : 1945 Age: 73 Procedure: Upper GI endoscopy Indications: Cologuard positive Providers: Kartik Sams MD Medicines: See the Anesthesia note for documentation of the administered medications Complications: No immediate complications. Procedure: Pre-Anesthesia Assessment: - Prior to the procedure, a History and Physical was performed, and patient medications and allergies were reviewed. The patient's tolerance of previous anesthesia was also reviewed. The risks and benefits of the procedure and the sedation options and risks were discussed with the patient. All questions were answered, and informed consent was obtained. Prior Anticoagulants: The patient has taken no previous anticoagulant or antiplatelet agents. ASA Grade Assessment: III - A patient with severe systemic disease. After reviewing the risks and benefits, the patient was deemed in satisfactory condition to undergo the procedure. After obtaining informed consent, the endoscope was passed under direct vision. Throughout the procedure, the patient's blood pressure, pulse, and oxygen saturations were monitored continuously. The gastroscope was introduced through the mouth, and advanced to the second part of duodenum. The upper GI endoscopy was accomplished without difficulty. The patient tolerated the procedure well. Scope In: 7:35:52 AM Scope Out: 7:47:27 AM Total Procedure Duration Time 0 hours 11 minutes 35 seconds Findings: Couple tongues of salmon-colored mucosa was present at 38 cm. Biopsies were taken with a cold forceps for histology. A small hiatal hernia was present. The Z-line was irregular and was found 38 cm from the incisors. Multiple polyps with no bleeding were found in the mid esophagus. The polyp was removed with a cold biopsy forceps. Diffuse mildly erythematous mucosa without bleeding was found in the gastric antrum. Biopsies were taken with a cold forceps for histology. Multiple sessile polyps with no bleeding and no stigmata of recent bleeding were found in the gastric fundus. The polyp was removed with a cold biopsy forceps. Resection and retrieval were complete. The examined duodenum was normal. 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 Biopsied. - Small hiatal hernia. - Z-line irregular, 38 cm from the incisors. - Esophageal polyp(s) were found. Resected and retrieved. - Erythematous mucosa in the antrum. Biopsied. - Multiple gastric polyps. Resected and retrieved. - Normal examined duodenum. Recommendation: - Telephone my office for pathology results in 1 week. - Discharge patient to home. - Resume previous diet. - Continue present medications. - Use Pepcid (famotidine) 20 mg PO BID. Procedure Code(s): --- Professional --- 29241, Esophagogastroduodenoscopy, flexible, transoral; with biopsy, single or multiple Diagnosis Code(s): --- Professional --- K22.8, Other specified diseases of esophagus K44.9, Diaphragmatic hernia without obstruction or gangrene K31.89, Other diseases of stomach and duodenum K31.7, Polyp of stomach and duodenum CPT copyright 2017 [employer]. All rights reserved. The codes documented in this report are preliminary and upon automotive mechanical engineer review may be revised to meet current compliance requirements. Kartik Sams MD 06/12/2018 8:15:45 AM This report has been signed electronically. Number of Addenda: 0 Note Initiated On: 06/12/2018 7:27 AM
[2018-06-12 08:20] VITALS: BP 105/69; BP 135/80; PULSE 61; RESP 18; O2SAT 95
--- NOTE | 2018-06-12 08:20 | OP.ENDO_ITS ---
Patient Name: Gurdeep Vela Procedure Date: 06/12/2018 7:48 AM Date of : 1945 Age: 73 Procedure: Colonoscopy Indications: Positive Cologuard test Providers: Kartik Sams MD Medicines: See the Anesthesia note for documentation of the administered medications Patient Profile: Last Colonoscopy: none. The patient's first colonoscopy is today. Complications: No immediate complications. Procedure: Pre-Anesthesia Assessment: - Prior to the procedure, a History and Physical was performed, and patient medications and allergies were reviewed. The patient's tolerance of previous anesthesia was also reviewed. The risks and benefits of the procedure and the sedation options and risks were discussed with the patient. All questions were answered, and informed consent was obtained. Prior Anticoagulants: The patient has taken no previous anticoagulant or antiplatelet agents. ASA Grade Assessment: III - A patient with severe systemic disease. After reviewing the risks and benefits, the patient was deemed in satisfactory condition to undergo the procedure. After I obtained informed consent, the scope was passed under direct vision. Throughout the procedure, the patient's blood pressure, pulse, and oxygen saturations were monitored continuously. The colonoscope was introduced through the anus and advanced to the cecum, identified by appendiceal orifice and ileocecal valve. The colonoscopy was performed without difficulty. The patient tolerated the procedure well. The quality of the bowel preparation was adequate to identify polyps. The ileocecal valve was photographed. Scope In: 7:50:05 AM Scope Withdrawal Time 0 hours 13 minutes 9 seconds Scope Out: 8:07:28 AM Total Procedure Duration Time 0 hours 17 minutes 23 seconds Findings: Hemorrhoids were found on perianal exam. A 14 mm polyp was found in the rectum. The polyp was sessile and 8cm from the anal verge. The polyp was removed with a saline injection-lift technique using a hot snare. Resection and retrieval were complete. Multiple diverticula were found in the sigmoid colon, descending colon and transverse colon. Impression: - Hemorrhoids found on perianal exam. - One 14 mm polyp in the rectum, removed using injection-lift and a hot snare. Resected and retrieved. - Diverticulosis in the sigmoid colon, in the descending colon and in the transverse colon. Recommendation: - Discharge patient to home. - Resume previous diet. - Continue present medications. - Repeat colonoscopy in 3 years for surveillance based on pathology results. - Telephone my office for pathology results in 1 week. Procedure Code(s): --- Professional --- 12976, Colonoscopy, flexible; with removal of tumor(s), polyp(s), or other lesion(s) by snare technique 75293, Colonoscopy, flexible; with directed submucosal injection(s), any substance Diagnosis Code(s): --- Professional --- K64.9, Unspecified hemorrhoids K62.1, Rectal polyp R19.5, Other fecal abnormalities K57.30, Diverticulosis of large intestine without perforation or abscess without bleeding CPT copyright 2017 [employer]. All rights reserved. The codes documented in this report are preliminary and upon instructor knitting review may be revised to meet current compliance requirements. Kartik Sams MD 06/12/2018 8:19:29 AM This report has been signed electronically. Number of Addenda: 0 Note Initiated On: 06/12/2018 7:48 AM
[2018-06-12 08:25] VITALS: BP 112/75; BP 135/80; PULSE 60; RESP 18; TEMP 36.1; O2SAT 99
[2018-06-12 09:11] VITALS: BP 135/80
== END 2018-06-12 09:13 | disposition home or self-care (01) ==
LOC: EN 06:19 → AC 06:21
PROVIDERS: Family Provider Family Medicine; PCP Family Medicine; Referring Provider Surgery; Visit Provider Surgery
PROC: 0DJD8ZZ Inspection of Lower Intestinal Tract, Via Natural or Artificial Opening Endoscopic (ICD-10-PCS; CPT 45378; principal; 2018-06-12 07:25)
DX: D12.8 Benign neoplasm of rectum (principal); K22.8 Other specified diseases of esophagus; K44.9 Diaphragmatic hernia without obstruction or gangrene; K31.89 Other diseases of stomach and duodenum; K31.7 Polyp of stomach and duodenum; K64.9 Unspecified hemorrhoids; R19.5 Other fecal abnormalities; K57.30 Diverticulosis of large intestine without perforation or abscess without bleeding; I10 Essential (primary) hypertension; E78.5 Hyperlipidemia, unspecified; Z87.891 Personal history of nicotine dependence
CPT/HCPCS: 43239; 45381; 45385; 88305; 88313; 88342; J7120; A4216

== ENCOUNTER 2019-06-18 06:51 | Day surgery (SDC) | payer MEDICARE, OTHER, SELFPAY ==
[2019-04-18 11:14] VITALS: BMI 31.8
[2019-06-18 07:07] VITALS: BP 117/71; PULSE 67; RESP 16; TEMP 36.9; O2SAT 97; BMI 31.8
[2019-06-18] MEDS: Lactated Ringers 1,000 ML 100 ML IV (07:18)
--- NOTE | 2019-06-18 07:20 | HP.PCM_ITS ---
Problem List (1) Personal history of colonic polyps Status: Acute History of Present Illness Date of Admission: 06/18/19 The patient is a 74 year old M who has a personal history of colon polyps. It is of note that on June 12, 2018 did a colonoscopy because of a positive Wallace guard. The patient had a 14 mm polyp in the rectum that required injection lift and hot snare removal. 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 He returns now for short-term follow-up. He denies abdominal pain. No bright red blood per rectum or melena. He otherwise enjoys good health. He does have a history of supraventricular paroxysmal tachycardia. He has not had any recent symptoms. 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 07/2015 Positive colorectal cancer screening using Cologuard test R19.5 Screening for intestinal cancer Z12.10 Allergies No Known Allergies Allergy (Verified 06/18/19 07:02) Home Medications: Ambulatory Orders Medication Instructions Recorded Lovastatin [Mevacor] 40 mg PO 1700 04/09/18 lisinopril 40 mg tablet 40 mg PO DAILY #90 tab 04/18/19 Amlodipine Besylate 5 mg PO DAILY 06/13/19 Metoprolol Succinate [Toprol Xl] 50 mg PO DAILY 06/13/19 Surgical History: Surgical History (Last Reviewed 04/18/19 @ 11:31 by Abdiel Ferrari MD) H/O arthroscopy of right knee Z98.890 H/O inguinal hernia repair Z98.890, Z87.19 H/O umbilical hernia repair Z98.890, Z87.19 History of colonoscopy Onset Date: ~2007 Z98.890 Smoking Status: Former smoker Review of Systems Constitutional: Denies: Anorexia HEENT: Denies: Difficulty Swallowing Cardiovascular: Denies: Chest Pain Respiratory: Denies: Cough Gastrointestinal: Denies: Abdominal Pain, Melena Endocrine: Denies: Change in Body Habitus VTE Information - Inpt Only VTE Present on Admission: No Patient Problems: Active and Suspected Problems (Last Reviewed 04/18/19 @ 11:31 by Abdiel Ferrari MD) Personal history of colonic polyps (Acute) - Physical Exam Vitals/I&O's: Vital Signs Temp Pulse Resp BP Pulse Ox 98.4 F 67 16 117/71 97 06/18/19 07:07 06/18/19 07:07 06/18/19 07:07 06/18/19 07:07 06/18/19 07:07 Oxygen Delivery Method Room Air Weight: 222 lb 0.088 oz Body Mass Index (BMI) 31.8 General: Alert, Oriented x3, Cooperative, No apparent distress HEENT: Atraumatic Oral: Moist Mucosa Lungs: Clear to auscultation, Normal air movement, No rhonchi Cardiovascular: Regular rate, Regular Rhythm Abdomen: Bowel Sounds Present, Soft, Non Tender Psych/Mental Status: Normal Affect Current Medications Lactated Ringer's () 1,000 mls @ 100 mls/hr IV .Q10H ALIZE Assessment/Plan All Active Problems (Last Reviewed 04/18/19 @ 11:31 by Abdiel Ferrari MD) Personal history of colonic polyps (Acute) I recommended the patient a surveillance colonoscopy with possible biopsy or polypectomy is indicated. He is aware of the technique, benefit, risks, alternatives. He has had an opportunity to ask and have questions answered. He presents via our open access program today. We will proceed as noted. Kartik Sams M.D., F.A.C.S.
--- NOTE | 2019-06-18 08:00 | COLBX_PTH ---
PATIENT: LEONEL BLISS LOC: EN U#:[id number] AGE/SX: 74/M ROOM: RE06/18/[address]: Dr. Kartik Sams MD : 1945 BED: DIS: 06/18/2019 SPEC #: [id number] RECD: 06/18/19 10:42 STATUS: BRIAN MADINA #: [id number] YI: 06/18/19 08:[address]: Kartik Sams DEPT: SURGICAL PATHOLOGY RECD BY: Wyatt Payan ENTERED: 06/18/19 13:07 SP TYPE: COLON BX NAYAN DR: Dr. Warren Pimentel MD Tissues: A - Transverse colon B - Sigmoid colon biopsy C - Rectum, NOS Procedures: Surgery Specimen Level IV HEADER OPERATION: Colonoscopy - open access (MAC) PRE-OP DIAGNOSIS: History colon polyps TISSUE SUBMITTED: A - Biopsy of mid transverse colon, B - Biopsy of mid sigmoid polyp, C - Rectum polyp MICROSCOPIC DIAGNOSIS A. Mid transverse colon, biopsy: Fragments of tubular adenoma. B. Mid sigmoid colon polyp, biopsy: Hyperplastic polyp. C. Rectal polyp, biopsy: Hyperplastic polyp. AM:iza 06/19/19 MICROSCOPIC DESCRIPTION Slides are reviewed. GROSS DESCRIPTION A - Received in fixative is one container labeled with the patient's name and designated biopsy of mid transverse colon. The specimen consists of two irregular fragments of light tai soft tissue that in aggregate measure 0.8 x 0.3 x 0.1 cm. The specimen is totally submitted in one cassette. B - Received in fixative is one container labeled with the patient's name and designated biopsy of mid sigmoid polyp. The specimen consists of one irregular fragment of light tai soft tissue that measures 0.3 x 0.3 x 0.1 cm. The specimen is totally submitted in one cassette. C - Received in fixative is one container labeled with the patient's name and designated rectum polyp. The specimen consists of one irregular fragment of light tai soft tissue that measures 0.2 x 0.2 x 0.1 cm. The specimen is totally submitted in one cassette. / ELAINE:iza 06/18/19 TC:5 CPT: 41033 x3
[2019-06-18 08:26] VITALS: BP 110/72; BP 117/71; PULSE 59; RESP 16; TEMP 36.6; O2SAT 98
--- NOTE | 2019-06-18 08:26 | OP.CCLET_ITS ---
06/18/2019 Warren Pimentel Re : Colonoscopy procedure for Gurdeep Vela Dear Loren This procedure was performed on Tuesday, June 18, 2019. My impressions and recommendations are as follows: Impressions : - One 4 mm polyp in the mid transverse colon, removed with a cold biopsy forceps. Resected and retrieved. - One 4 mm polyp in the mid sigmoid colon, removed with a cold biopsy forceps. Resected and retrieved. - One 7 mm polyp in the rectum, removed with a hot snare. Resected and retrieved. - Diverticulosis in the sigmoid colon. Recommendations : - Discharge patient to home. - Resume previous diet. - Continue present medications. - Repeat colonoscopy in 3 years for surveillance based on pathology results. - Telephone my office for pathology results in 1 week. My findings are described in the full procedure note, which is enclosed. If I can be of further assistance, please feel free to contact me at Doctor phone number(s): Work: . Sincerely, Kartik Sams MD 06/18/2019 8:25:58 AM This report has been signed electronically.
--- NOTE | 2019-06-18 08:26 | OP.COLON_ITS ---
Patient Name: Gurdeep Vela Procedure Date: 06/18/2019 7:56 AM Date of : 1945 Age: 74 Procedure: Colonoscopy Indications: High risk colon cancer surveillance: Personal history of colonic polyps Providers: Kartik Sams MD Referring MD: Warren Pimentel Medicines: See the Anesthesia note for documentation of the administered medications Patient Profile: Last Colonoscopy: May 2018. Complications: No immediate complications. Procedure: Pre-Anesthesia Assessment: - Prior to the procedure, a History and Physical was performed, and patient medications and allergies were reviewed. The patient's tolerance of previous anesthesia was also reviewed. The risks and benefits of the procedure and the sedation options and risks were discussed with the patient. All questions were answered, and informed consent was obtained. Prior Anticoagulants: The patient has taken no previous anticoagulant or antiplatelet agents. ASA Grade Assessment: II - A patient with mild systemic disease. After reviewing the risks and benefits, the patient was deemed in satisfactory condition to undergo the procedure. After I obtained informed consent, the scope was passed under direct vision. Throughout the procedure, the patient's blood pressure, pulse, and oxygen saturations were monitored continuously. The colonoscope was introduced through the anus and advanced to the cecum, identified by appendiceal orifice and ileocecal valve. The colonoscopy was performed without difficulty. The patient tolerated the procedure well. The quality of the bowel preparation was good. The ileocecal valve and the appendiceal orifice were photographed. Scope In: 8:03:31 AM Scope Withdrawal Time 0 hours 12 minutes 1 second Scope Out: 8:19:57 AM Total Procedure Duration Time 0 hours 16 minutes 26 seconds Findings: The perianal and digital rectal examinations were normal. A 4 mm polyp was found in the mid transverse colon. The polyp was sessile. The polyp was removed with a cold biopsy forceps. Resection and retrieval were complete. A 4 mm polyp was found in the mid sigmoid colon. The polyp was sessile. The polyp was removed with a cold biopsy forceps. Resection and retrieval were complete. A 7 mm polyp was found in the rectum. The polyp was sessile. The polyp was removed with a hot snare. Resection and retrieval were complete. Multiple diverticula were found in the sigmoid colon. Impression: - One 4 mm polyp in the mid transverse colon, removed with a cold biopsy forceps. Resected and retrieved. - One 4 mm polyp in the mid sigmoid colon, removed with a cold biopsy forceps. Resected and retrieved. - One 7 mm polyp in the rectum, removed with a hot snare. Resected and retrieved. - Diverticulosis in the sigmoid colon. Recommendation: - Discharge patient to home. - Resume previous diet. - Continue present medications. - Repeat colonoscopy in 3 years for surveillance based on pathology results. - Telephone my office for pathology results in 1 week. Procedure Code(s): --- Professional --- 63181, Colonoscopy, flexible; with removal of tumor(s), polyp(s), or other lesion(s) by snare technique 12600, 59, Colonoscopy, flexible; with biopsy, single or multiple Diagnosis Code(s): --- Professional --- Z86.010, Personal history of colonic polyps D12.3, Benign neoplasm of transverse colon (hepatic flexure or splenic flexure) D12.5, Benign neoplasm of sigmoid colon K62.1, Rectal polyp K57.30, Diverticulosis of large intestine without perforation or abscess without bleeding CPT copyright 2017 [employer]. All rights reserved. The codes documented in this report are preliminary and upon educational resource coordinator review may be revised to meet current compliance requirements. Kartik Sams MD 06/18/2019 8:25:58 AM This report has been signed electronically. Number of Addenda: 0 Note Initiated On: 06/18/2019 7:56 AM
[2019-06-18 08:30] VITALS: BP 111/75; BP 117/71; PULSE 58; RESP 16; O2SAT 97
[2019-06-18 08:35] VITALS: BP 113/72; BP 117/71; PULSE 55; RESP 16; O2SAT 99
[2019-06-18 08:40] VITALS: BP 114/71; BP 117/71; PULSE 65; RESP 16; TEMP 36.1; O2SAT 100
[2019-06-18 08:57] VITALS: BP 117/71
== END 2019-06-18 09:12 | disposition home or self-care (01) ==
LOC: EN 06:53 → AC 06:55
PROVIDERS: Family Provider Family Medicine; PCP Family Medicine; Referring Provider Family Medicine; Visit Provider Surgery
PROC: 0DJD8ZZ Inspection of Lower Intestinal Tract, Via Natural or Artificial Opening Endoscopic (ICD-10-PCS; CPT 45378; principal; 2019-06-18 07:55)
DX: Z12.11 Encounter for screening for malignant neoplasm of colon (principal); Z86.010 Personal history of colon polyps; D12.3 Benign neoplasm of transverse colon; D12.5 Benign neoplasm of sigmoid colon; K62.1 Rectal polyp; K57.30 Diverticulosis of large intestine without perforation or abscess without bleeding; E78.5 Hyperlipidemia, unspecified; I10 Essential (primary) hypertension; I45.10 Unspecified right bundle-branch block; Z86.73 Personal history of transient ischemic attack (TIA), and cerebral infarction without residual deficits; Z87.891 Personal history of nicotine dependence
CPT/HCPCS: 45380; 45385; 88305; J7120

== ENCOUNTER → 2023-12-13 | Outpatient (CLI) | payer MEDICARE, OTHER, SELFPAY ==
[2023-12-13 12:50] LABS: Absolute Lymphocyte Count 1.39 X10^3/uL (0.83-4.51); Absolute Neutrophil Count 5.1 X10^3/uL (2.0-7.7); Basophil# 0.04 X10^3/uL; Basophil% 0.5 % (0-1); Eosinophil# 0.36 X10^3/uL; Eosinophils% 4.7 % (0-5); Hematocrit 46.3 % (40-54); Hemoglobin 14.9 g/dL (13.0-16.5); Lymphocyte # 1.39 X10^3/ul (0.83-4.51); Lymphocyte % 18.2 % (19-41); Mean Corp Hgb Conc 32.2 g/dL (32-36); Mean Corpuscular Hgb 30.9 pg (27.0-32.0); Mean Corpuscular Volume 96.1 fL (80-94); Monocyte# 0.76 X10^3/uL; NRBC Flagged by Analyzer 0 % (0-5); Neutrophil # 5.05 X10^3/uL (2.7-7.7); Neutrophil % 66.2 % (47-70); Platelet Count 216 K/mm3 (150-450); RBC Distribution Width CV 13.3 % (11.6-14.6); RBC Distribution Width SD 47.2 fl (35.1-43.9); Red Blood Count 4.82 M/mm3 (4.6-6.2); White Blood Count 7.6 K/mm3 (4.4-11.0)
[2023-12-13 13:09] LABS: Vitamin D,25 Hydroxy 67.7 ng/mL
[2023-12-13 13:26] LABS: ALB/GLOB Ratio 1.3 RATIO (0.9-2.4); AST(SGOT) 20 U/L (15-37); Alanine Aminotransfer ALT/SGPT 24 U/L (16-61); Albumin, Serum 3.8 g/dL (3.2-5.0); Alkaline Phosphatase 68 U/L (45-117); Anion Gap 6 (5-15); BUN 21 mg/dL (7-18); BUN/Creat Ratio 15.3 RATIO (10-20); Calcium,Total 8.8 mg/dL (8.5-10.1); Chloride 110 mmol/L (98-107); Cholesterol 127 mg/dL (200); Creatinine, Serum 1.37 mg/dL (0.70-1.30); EST Glomerular Filtration Rate 53 mL/min (>60); Est Glom Filt Rate - Afr Amer 65 mL/min (>60); Glucose 109 mg/dL (74-106); High Density Lipoprotein 36 mg/dL; Potassium 4.2 mmol/L (3.5-5.1); Protein, Total 6.8 g/dL (6.4-8.2); Sodium Level 140 mmol/L (136-145); Triglycerides 102 mg/dL; Very Low Density Lipoprotein 20 mg/dL (5-40)
== END | disposition home or self-care (01) ==
LOC: BFHLAB 09:41
PROVIDERS: PCP Family Medicine; Referring Provider Family Medicine; Visit Provider Family Medicine
DX: I12.9 Hypertensive chronic kidney disease with stage 1 through stage 4 chronic kidney disease, or unspecified chronic kidney disease (principal); N18.31 Chronic kidney disease, stage 3a; E78.5 Hyperlipidemia, unspecified; E55.9 Vitamin D deficiency, unspecified; Z12.5 Encounter for screening for malignant neoplasm of prostate
CPT/HCPCS: 36415; 80053; 80061; 82306; 84153; 85025; G0103

== ENCOUNTER → 2024-06-20 | Outpatient (CLI) | payer MEDICARE, OTHER, SELFPAY ==
[2024-06-22 10:09] LABS: PSA, Free 1.72 ng/mL; PSA, Free % 28.1 % (.)
== END | disposition home or self-care (01) ==
LOC: BFHLAB 14:10
PROVIDERS: PCP Family Medicine; Visit Provider Family Medicine
DX: R97.20 Elevated prostate specific antigen [PSA] (principal)
CPT/HCPCS: 36415; 84153; 84154

== ENCOUNTER → 2024-12-11 | Outpatient (CLI) | payer MEDICARE, OTHER, SELFPAY ==
[2024-12-11 10:39] LABS: Hematocrit 46.6 % (40-54); Hemoglobin 15.3 g/dL (13.0-16.5); Immature Granulocytes Count 0.030 X10^3/uL (0.0-0.0); Mean Corp Hgb Conc 32.8 g/dL (32-36); Mean Corpuscular Volume 94.9 fL (80-94); Mean Platelet Vol. 9.9 fl (6.2-12.0); NRBC Flagged by Analyzer 0 % (0-5); Platelet Count 214 K/mm3 (150-450); RBC Distribution Width CV 13.2 % (11.6-14.6); RBC Distribution Width SD 46.8 fl (35.1-43.9); Red Blood Count 4.91 M/mm3 (4.6-6.2); White Blood Count 6.9 K/mm3 (4.4-11.0)
[2024-12-11 11:56] LABS: AST(SGOT) 21 U/L (<=37); Alanine Aminotransfer ALT/SGPT 21 U/L (<=46); Albumin, Serum 4.2 g/dL (3.4-4.8); Alkaline Phosphatase 64 U/L (40-129); Anion Gap 9 (5-15); BUN 19 mg/dL (4-19); BUN/Creat Ratio 14.7 RATIO (10-20); Calcium,Total 9.4 mg/dL (7.6-11.0); Carbon Dioxide 24.9 mmol/L (21.0-32.0); Chloride 109 mmol/L (98-108); Cholesterol 125 mg/dL (<=200); Globulin 2.4 g/dL (2.2-4.2); Glucose 113 mg/dL (70-99); Low Density Lipoprotein Calc. 72 mg/dL; PSA,Total- Diagnostic 6.65 ng/mL (0.00-4.00); Potassium 4.6 mmol/L (3.3-5.1); Triglycerides 82 mg/dL; Very Low Density Lipoprotein 16 mg/dL (5-40); Vitamin D,25 Hydroxy 68.0 ng/mL (30-100); cholesterol:hdl ratio screen 3.43
== END | disposition home or self-care (01) ==
LOC: MTLAB 08:30
PROVIDERS: PCP Family Medicine; Referring Provider Family Medicine; Visit Provider Family Medicine
DX: I12.9 Hypertensive chronic kidney disease with stage 1 through stage 4 chronic kidney disease, or unspecified chronic kidney disease (principal); N18.31 Chronic kidney disease, stage 3a; E78.5 Hyperlipidemia, unspecified; E55.9 Vitamin D deficiency, unspecified; R97.20 Elevated prostate specific antigen [PSA]; R73.01 Impaired fasting glucose
CPT/HCPCS: 36415; 80053; 80061; 82306; 83036; 84153; 85025